=== PATIENT | female | born 1945 | race Caucasian/White ===

== ENCOUNTER → 2016-04-29 | Day surgery (SDC) | payer OTHER ==
[2016-04-16 11:36] VITALS: Ht 157.5 cm; Wt 65.0 kg
[~2016-04-29] VITALS: Ht 157.5 cm; Wt 65.0 kg
[~2016-04-29] MED LIST: ASPI81TA28 PO; ATROPINE SULFATE 0.1 MG/ML 5ML SYR IV PRN; BUPIVACAINE 0.5 % 5 MG/1 ML MPF 30ML VIAL ONE; CEFAZOLIN 1000MG/55 ML D5W IV SCH; CLTP PO; EZET10TA63 PO; EpHEDrine SULFATE INJ 50 MG/ML AMP IV PRN; EpINEphrine INJ 1MG/ML AMP 1 MG/ML AMP ONE; FENTANYL CITRATE INJ 50 MCG/1 ML 2 ML VIAL ONE; FIBER PO; GLUCTAB7 PO; HYDR-5688 PO; HYDROmorphone INJ 1 MG/ML SYR IV PRN; IBUP-1050 PO; KETOROLAC TROMETHAMINE 30 MG/ML VIAL ONE; LACTATED RINGER'S 1000ML 1,000 ML IV SCH; LIDOCAINE HCL 2% 2 ML VIAL (20MG/ML) ONE; LOSA1TAB PO; MAGN400T6 PO; MIDAZOLAM HCL 1 MG/ML 2ML VIAL ONE; MULT-513 PO; NIAC500T11 PO; OMEG10007 PO; ONDANSETRON INJ 2 MG/ML 2 ML VIAL IV PRN; OXYCODONE/ACETAMINOPHEN 5-325 TAB PO PRN; PROPOFOL IV EMULSION 10 MG/ML 20 ML VIAL IV ONE; RANI300T2 PO; REDCAP2 PO; ROPIVACAINE 0.5% 5 MG/ML 30 ML VIAL ONE; SODIUM CHLORIDE 0.9% 1000ML 1,000 ML IV SCH
--- NOTE | 2016-04-29 08:31 | History & Physical Bridge - [place] ---
H&P Re-Evaluation Bridge Note: I have examined the patient, reviewed the History & Physical and in the interval since the performance of the History & Physical I have noted the following changes of clinical significance: No changes noted
--- NOTE | 2016-04-29 09:07 | [facility] Post Operative Brief Note ---
Immediate Operative Summary Operative Date Apr 29, 2016. Pre-Operative Diagnosis Left Knee Current Tear Of Lateral Meniscus Post-Operative Diagnosis same Procedure(s) Performed Left Knee Arthroscopy, Partial Lateral Meniscectomy, Removal Spur, DJD LATERAL FEMORAL CONDYLE Surgeon Dr. Kala Sosa Tower Excavator Operator Surgeon(s) Víctor Ag PA-C Estimated Blood Loss 0 Findings ABOVE Specimens none Anesthesia LMA Complication(s) None Disposition Recovery Room / PACU
--- NOTE | 2016-04-29 09:20 | Discharge Instructions-SurgCtr ---
Discharge Instructions Visit Reason for Visit: Left Knee Current Tear Of Lateral Meniscus Discharge Discharge Diagnosis / Problem: SAME ABOVE Discharge Goals Goal(s): Decrease discomfort, Improve function Activity Recommendations Activity Limitations: as noted below Lifting Limitations: until after follow-up appointment Exercise/Sports Limitations: until after follow-up appointment Weightbearing Status: Left weightbearing (as tolerated) Anesthesia . Post Anesthesia Instructions: If you have had General Anesthesia or IV Sedation: * Do not drive today. * Resume driving when surgeon permits. * Do not make important decisions or sign legal documents today. * Call surgeon for: 1. Temperature elevations greater than 101 degrees F. 2. Uncontrollable pain. 3. Excessive bleeding. 4. Persistent nausea and vomiting. 5. Medication intolerance (nausea, vomiting or rash). * For nausea and vomiting use only clear liquids such as: tea, soda, bouillon until nausea subsides, then gradually increase diet as tolerated. * If you have any concerns or questions, call your surgeon's office. If physician is unavailable and it is an emergency, call 911 or go to the nearest emergency room. . Instructions / Follow-Up Instructions / Follow-Up MEDICATIONS: * Resume previous medications unless instructed otherwise by your surgeon. * Always take pain medication on a full stomach or with food to avoid upset stomach. * Do not drink alcohol or drive while taking narcotics. * Ibuprofen or Tylenol may be taken if narcotic not needed. SPECIAL CARE INSTRUCTIONS: __ None _X_ Keep extremity elevated and iced x 48 hours; apply ice 20-30 minutes 8-10 times/day. May remove at night. __ Crutches __ May discard when able __ Brace/Post-op shoe __ 24 hrs/day __ Remove at night _X_ Dressing __ Maintain until seen in office, may shower with plastic over site _X_ Remove dressings in 24-48 hours and then may shower _X_ Cover incisions with band-aids after showering __ Do not remove steri-strips Call physician if chills or temperature rises above 102 degrees or pain unrelieved by prescribed pain medications. Office [phone] Diet Recommendations Home Diet: resume previous diet Procedures Procedures Performed: Left Knee Arthroscopy, Partial Lateral Meniscectomy, Removal Spur, DJD LATERAL FEMORAL CONDYLE Pending Studies Studies pending at discharge: no Medical Emergencies . Who to Call and When: Medical Emergencies: If at any time you feel your situation is an emergency, please call 911 immediately. . Non-Emergent Contact Non-Emergency issues call your: Primary Care Provider . . "Provider Documentation" section prepared by Víctor Ag.
[2016-04-29] MEDS: FENTANYL CITRATE INJ 50 MCG/1 ML 2 ML VIAL IV PRN ×4 (09:29→09:53)
--- NOTE | 2016-04-29 09:53 | Anesthesia Progress Nt - [facility] ---
Anesthesia Post Op Note Date & Time Apr 29, 2016 at 09:52 Vital Signs Pain Intensity: 5.0 Vital Signs Past 12 Hours Date Time Temp Pulse Resp B/P Pulse Ox O2 Delivery O2 Flow Rate FiO2 04/29/16 09:15 36.0 75 12 158/87 100 Diffusion Mask 6 04/29/16 07:36 36.4 80 16 149/83 99 Room Air Notes Mental Status: alert / awake / arousable, participated in evaluation Pt Amnestic to Procedure: Yes Nausea / Vomiting: adequately controlled Pain: adequately controlled, improving with treatment Airway Patency, RR, SpO2: stable & adequate BP & HR: stable & adequate Hydration State: stable & adequate Anesthetic Complications: no major complications apparent
--- NOTE | 2016-04-29 09:59 | OPERATIVE REPORT ---
DATE OF OPERATION: 04/29/2016 PREOPERATIVE DIAGNOSIS: Lateral meniscus tear, left knee with degenerative joint disease. POSTOPERATIVE DIAGNOSES: 1. Complex tear of the anterior horn of the lateral meniscus, left knee. 2. Spur on the medial femoral condyle. 3. 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 4. Diffuse synovitis, left knee with partial tear of the anterior cruciate ligament at the footprint of the tibia of the intercondylar notch. PROCEDURE: 1. Left knee arthroscopy. 2. Partial lateral meniscectomy. 3. Removal of spur of the medial femoral condyle. 4. Diffuse synovectomy. SURGEON: Dr. Sosa. POCKET BUILDER: Víctor Ag PA-C. ANESTHESIOLOGIST: Guillermo . ANESTHESIA: LMA. DRAINS: None. COMPLICATIONS: None. CONDITION: The patient tolerated the procedure well and returned to the recovery room in apparent satisfactory condition. INDICATIONS FOR SURGERY: Lisseth is a 70-year-old female having all lateral compartment pain, left knee. Right knee is asymptomatic. Went over various treatment options and elected to go ahead and proceed with knee arthroscopy realizing that there are some limitations in what we can accomplish arthroscopically. We can address meniscal pathology but not degenerative arthritis. Procedure, expected outcomes and side effects, and risks were all explained in detail including the risk of surgery and possible not significant relief with the operation. PROCEDURE: The patient was taken to the OR at which time she was placed supine on the operating table, was put to sleep by the anesthesia department. Examination of left knee was performed. Ligamentous lambert was stable. She did have a mild effusion. We went ahead and prepped and draped in usual sterile fashion. Began arthroscopic examination in the anteromedial and anterolateral portals. Immediately, we got about 20 mL of clear fluid. There was some debris floating in it but it was relatively clear. We felt it was arthritic fluid. We then began arthroscopic examination in the knee joint. We found the spur on the flexion surface of the medial femoral condyle about the size of a peanut. It was interesting presentation as far as location. We went ahead and burred this down to a smooth area. We found a lot of synovitis in the intercondylar notch, this was shaved out. She had an anterior horn, medial and mid portion tear of the lateral meniscus, it was frayed and comminuted. We came in and trimmed it back to a stable rim. There were some articular changes of the lateral compartment, there was a grade 4 change of the trochlear groove within lateral femoral condyle. We did a diffuse synovectomy also to remove irritated tissue. The knee then was copiously irrigated. All cannulas were removed. Portals were closed with 4-0 nylon sutures. 30 mL of ropivacaine, 10 mg of Toradol, and 1 mL of epinephrine was placed in the knee joint. Placed a sterile dressing of Xeroform, 4 x 4, ABD, Sof-Rol, and Twan bandage and returned back to recovery room in apparent satisfactory condition. SURGICAL FINDINGS: Included: 1. Comminuted tear of the lateral meniscus. 2. Degenerative joint disease lateral femoral condyle grade 4. 3. Spur on the medial femoral condyle. 4. She had diffuse synovitis of the knee. 5. She had a partial tear of the footprint of the anterior cruciate ligament. I attest to the content of the Intraoperative Record and any orders documented therein. Any exceptions are noted below. TONY
[2016-04-29 10:21] VITALS: TEMP 36.8
[2016-04-29 10:50] VITALS: BP 149/82; PULSE 73; O2SAT 100
== END | disposition home or self-care (01) ==
LOC: X.SURG 07:20
PROVIDERS: ATTEND Orthopaedic Surgery
DX: M17.12 Unilateral primary osteoarthritis, left knee (principal); M25.562 Pain in left knee; Z98.49 Cataract extraction status, unspecified eye; E78.00 Pure hypercholesterolemia, unspecified; Z85.3 Personal history of malignant neoplasm of breast; M54.5 Low back pain; R12 Heartburn; M25.462 Effusion, left knee; Z79.82 Long term (current) use of aspirin; I10 Essential (primary) hypertension; I34.1 Nonrheumatic mitral (valve) prolapse; Z92.3 Personal history of irradiation

== ENCOUNTER → 2017-01-01 | Outpatient (CLI) | payer OTHER ==
[~2017-01-01] MED LIST changes: -ATROPINE SULFATE 0.1 MG/ML 5ML SYR IV PRN; -BUPIVACAINE 0.5 % 5 MG/1 ML MPF 30ML VIAL ONE; -CEFAZOLIN 1000MG/55 ML D5W IV SCH; -EpHEDrine SULFATE INJ 50 MG/ML AMP IV PRN; -EpINEphrine INJ 1MG/ML AMP 1 MG/ML AMP ONE; -FENTANYL CITRATE INJ 50 MCG/1 ML 2 ML VIAL ONE; -HYDR-5688 PO; -HYDROmorphone INJ 1 MG/ML SYR IV PRN; -KETOROLAC TROMETHAMINE 30 MG/ML VIAL ONE; -LACTATED RINGER'S 1000ML 1,000 ML IV SCH; -LIDOCAINE HCL 2% 2 ML VIAL (20MG/ML) ONE; -MIDAZOLAM HCL 1 MG/ML 2ML VIAL ONE; -ONDANSETRON INJ 2 MG/ML 2 ML VIAL IV PRN; -OXYCODONE/ACETAMINOPHEN 5-325 TAB PO PRN; -PROPOFOL IV EMULSION 10 MG/ML 20 ML VIAL IV ONE; -ROPIVACAINE 0.5% 5 MG/ML 30 ML VIAL ONE; -SODIUM CHLORIDE 0.9% 1000ML 1,000 ML IV SCH
--- NOTE | 2017-01-01 12:44 | MAMMOGRAPHY REPORT ---
BILATERAL DIGITAL SCREENING MAMMOGRAM TOMOSYNTHESIS WITH CAD: 01/01/2017 CLINICAL HISTORY: Asymptomatic. Personal history of breast cancer. TECHNIQUE: Breast tomosynthesis in addition to standard 2D mammography was performed. Current study was also evaluated with a Computer Aided Detection (CAD) system. COMPARISON: Comparison is made to exams dated: 12/25/2015 mammogram, 12/20/2014 mammogram, 06/26/2014 ma mmogram, 12/19/2013 mammogram, 12/16/2012 mammogram, and 12/16/2011 mammogram - [facility]. BREAST COMPOSITION: There are scattered areas of fibroglandular density in both breasts. FINDINGS: No suspicious masses, calcifications, or areas of architectural distortion are noted in ei ther breast. There has been no significant interval change compared to prior exams. There are stable postsurgical changes in the right upper outer quadrant from prior lumpectomy, including stable archi tectural distortion, density, surgical clips, and coarse benign dystrophic calcifications at the surg ical bed. IMPRESSION: ACR BI-RADS CATEGORY 2: BENIGN There is no mammographic evidence of malignancy. A 1 year screening mammogram is recommended. The pa tient will receive written notification of the results. Approximately 10% of breast cancers are not detected with mammography. A negative mammographic report should not delay biopsy if a clinically suggestive mass is present. Coby Emmanuel M.D. ah/:01/01/2017 12:07:24 Business Administrator: Corinne VALDES(Liliana)(M), [facility] letter sent: Normal 1/2 BI-RADS Code: ACR BI-RADS Category 2: Benign
== END | disposition home or self-care (01) ==
LOC: C.MAMM 09:52
PROVIDERS: ATTEND Obstetrics & Gynecology
DX: Z12.31 Encounter for screening mammogram for malignant neoplasm of breast (principal); Z85.3 Personal history of malignant neoplasm of breast

== ENCOUNTER → 2017-03-27 | Outpatient (CLI) | payer OTHER ==
[2017-03-27 09:32] LABS: BASO % 0.7 %; BASO ABS # 0.03 K/uL (0-0.2); COMPLETE YES; EOS % 4.5 %; LYMPH % 37.2 %; LYMPH ABS # 1.64 K/uL (1.2-3.4); MEAN CELL VOLUME 90.7 fL (80-100); MEAN CORPUSCULAR HEMOGLOBIN 30.2 pg (25-34); MEAN CORPUSCULAR HGB CONC 33.3 g/dl (32-36); MEAN PLATELET VOLUME 9.8 fL (7.4-10.4); MONO % 9.8 %; NEUT % 47.8 %; PLATELET COUNT 259 K/uL (130-400); RED BLOOD COUNT 3.97 M/uL (4.2-5.4); WHITE BLOOD COUNT 4.41 K/uL (4.8-10.8)
[2017-03-27 09:51] LABS: ALT/SGPT 42 U/L (12-78); AST/SGOT 32 U/L (15-37); BLOOD UREA NITROGEN 27 mg/dl (7-18); BUN/CREATININE RATIO 36.2 (10-20); CALCIUM 8.7 mg/dl (8.5-10.1); CARBON DIOXIDE 29 mmol/L (21-32); CHLORIDE 104 mmol/L (98-107); CREATININE 0.76 mg/dl (0.60-1.20); GLUCOSE 91 mg/dl (70-99); POTASSIUM 3.6 mmol/L (3.5-5.1); SODIUM 138 mmol/L (136-145)
[2017-03-27 09:54] LABS: ALB/GLOB RATIO 1.1 (0.9-2); ALKALINE PHOSPHATASE 75 U/L (45-117); CHOLESTEROL 226 mg/dl (0-200); CHOLESTEROL/HDL RATIO 2.2; HDL CHOLESTEROL 102 mg/dl; LDL CHOLESTEROL CALCULATED 110 mg/dl; TRIGLYCERIDES 71 mg/dl (0-150); VERY LOW DENSITY LIPOPROT CALC 14 mg/dl
== END | disposition home or self-care (01) ==
LOC: C.LAB1850 07:06
PROVIDERS: ATTEND Internal Medicine
DX: E78.00 Pure hypercholesterolemia, unspecified (principal); R73.01 Impaired fasting glucose; I10 Essential (primary) hypertension

== ENCOUNTER → 2017-05-11 | Outpatient (CLI) | payer OTHER | END | disposition home or self-care (01) | LOC: C.MAMM 14:28 | PROVIDERS: ATTEND Internal Medicine | DX: M85.88 Other specified disorders of bone density and structure, other site (principal) ==

== ENCOUNTER → 2017-05-19 | Outpatient (CLI) | payer OTHER | END | disposition home or self-care (01) | LOC: C.LABBFT 10:39 | PROVIDERS: ATTEND Internal Medicine | DX: M81.0 Age-related osteoporosis without current pathological fracture (principal) ==

== ENCOUNTER → 2017-11-12 | Outpatient (CLI) | payer OTHER ==
[~2017-11-12] MED LIST changes: +ACET-1256 PO; +ASPEC325 PO; -ASPI81TA28 PO; +CALC600T9 PO; +CETI10TA84 PO; -CLTP PO; +FLUT0.15; +FSMD/70 PO; -GLUCTAB7 PO; -IBUP-1050 PO; +MAGN1CAP2 PO; -MAGN400T6 PO; -MULT-513 PO; +NAPR1TAB9 PO; -OMEG10007 PO; +PSEU30TA3 PO; -REDCAP2 PO; +RXC5 PO; +TRAM-10 PO; +TURM1CAP4 PO; +ZOLP10TA PO
== END | disposition home or self-care (01) ==
LOC: C.LABBFT 10:23
PROVIDERS: ATTEND Nurse Practitioner
DX: R39.9 Unspecified symptoms and signs involving the genitourinary system (principal)

== ENCOUNTER 2021-10-18 07:56 | Observation (INO) ==
--- NOTE | 2021-09-23 21:17 | PAT Medication Instructions ---
Medication Instructions Date of Service September 23, 2021 Home Medications Medication Instructions Recorded alendronate 70 mg tablet See Rx Instructions .ROUTE 11/14/20 .COMPLEX #12 tablet cyclobenzaprine 5 mg tablet 5 mg PO TID PRN #30 tab 02/28/21 tramadol 50 mg tablet 50 mg PO Q6H PRN #60 tab 05/22/21 acetaminophen 650 mg tablet,extended release 650 mg PO Q12H PRN magnesium oxide 400 mg PO HS calcium carbonate 600 mg calcium (1,500 mg) tablet (Calcium) 600 mg PO HS cetirizine 10 mg capsule (Zyrtec) 10 mg PO HS aspirin 81 mg tablet,delayed release (Adult Low Dose Aspirin) 81 mg PO HS alendronate 70 mg tablet See Rx Instructions .ROUTE .COMPLE cyclobenzaprine 5 mg tablet 5 mg PO TID PRN tramadol 50 mg tablet 50 mg PO Q6H PRN biotin 1 mg tablet 1 mg PO HS cinnamon bark 500 mg capsule (Cinnamon) 500 mg PO HS cyanocobalamin (vitamin B-12) 1,000 mcg tablet (Vitamin B-12) 1,000 mcg PO QAM esomeprazole magnesium 40 mg capsule,delayed release (Nexium) 40 mg PO QAM ezetimibe 10 mg tablet (Zetia) 10 mg PO HS fluticasone propionate 50 mcg/actuation nasal spray,suspension (Flonase Allergy Relief) 2 spray INTNAS DAILY PRN losartan 100 mg tablet 100 mg PO QAM meloxicam 15 mg tablet 15 mg PO DAILY PRN turmeric 400 mg capsule 400 mg PO HS Continue as directed alendronate 70 mg tablet See Rx Instructions .ROUTE .COMPLE ASK your surgeon for instructions meloxicam 15 mg tablet 15 mg PO DAILY PRN STOP taking 2 weeks before surgery (or as soon as possible if surgery is within 2 weeks) cinnamon bark 500 mg capsule (Cinnamon) 500 mg PO HS turmeric 400 mg capsule 400 mg PO HS DO NOT take the morning of surgery cyclobenzaprine 5 mg tablet 5 mg PO TID PRN cyanocobalamin (vitamin B-12) 1,000 mcg tablet (Vitamin B-12) 1,000 mcg PO QAM losartan 100 mg tablet 100 mg PO QAM Take morning of surgery With a small sip of water, OTHERWISE NOTHING TO EAT OR DRINK AFTER MIDNIGHT: acetaminophen 650 mg tablet,extended release 650 mg PO Q12H PRN (okay to take up to 4 hours prior to surgery if needed) tramadol 50 mg tablet 50 mg PO Q6H PRN (okay to take up to 4 hours prior to surgery if needed) esomeprazole magnesium 40 mg capsule,delayed release (Nexium) 40 mg PO QAM fluticasone propionate 50 mcg/actuation nasal spray,suspension (Flonase Allergy Relief) 2 spray INTNAS DAILY PRN (if needed) Take evening before surgery acetaminophen 650 mg tablet,extended release 650 mg PO Q12H PRN (if needed) magnesium oxide 400 mg PO HS calcium carbonate 600 mg calcium (1,500 mg) tablet (Calcium) 600 mg PO HS cetirizine 10 mg capsule (Zyrtec) 10 mg PO HS aspirin 81 mg tablet,delayed release (Adult Low Dose Aspirin) 81 mg PO HS (continue as normal unless told otherwise by surgeon) cyclobenzaprine 5 mg tablet 5 mg PO TID PRN (if needed) tramadol 50 mg tablet 50 mg PO Q6H PRN (if needed) biotin 1 mg tablet 1 mg PO HS ezetimibe 10 mg tablet (Zetia) 10 mg PO HS fluticasone propionate 50 mcg/actuation nasal spray,suspension (Flonase Allergy Relief) 2 spray INTNAS DAILY PRN (if needed) Other Notes If you have any questions please call us at [phone] or [phone] or [phone] or [phone]
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
[~2021-10-18 07:56] MED LIST changes: -ACET-1256 PO; +ACETAMINOPHEN 500 MG TAB PO SCH; -ASPEC325 PO; +BUPIVACAINE 0.5 % 5 MG/1 ML PF 10ML VIAL ONE; -CALC600T9 PO; -CETI10TA84 PO; +EPINEPHrine INJ 1 MG/ML AMP ONE; -EZET10TA63 PO; +FAMOTIDINE 20 MG TAB PO SCH; -FIBER PO; -FLUT0.15; -FSMD/70 PO; +GABAPENTIN 300 MG CAP PO SCH; +Ketorolac (*for OR use only*) 30 MG, dexAMETHasone 4 MG, KETAMINE HCL (**OR use only) 1... INFIL SCH; -LOSA1TAB PO; +LR 500ML BOLUS, THEN 15ML/HR IV SCH; +LR 60ML/HR IV SCH; -MAGN1CAP2 PO; -NAPR1TAB9 PO; -NIAC500T11 PO; -PSEU30TA3 PO; -RANI300T2 PO; +ROPIVACAINE 0.5% 5 MG/ML 30 ML VIAL ONE; -RXC5 PO; -TRAM-10 PO; +TRANEXAMIC ACID 1,000 MG **IV Intra-op IV SCH; +TRANEXAMIC ACID 1,000 MG **IV Pre-op IV SCH; -TURM1CAP4 PO; -ZOLP10TA PO; +dexAMETHasone 4 MG TAB PO SCH
[2021-10-18] MEDS ORDERED: PROPOFOL IV EMULSION 10 MG/ML 20 ML VIAL IV ONE (08:40)
--- NOTE | 2021-10-18 09:18 | History & Physical Bridge Note ---
Date of Service October 18, 2021 History & Physical Bridge Note I have examined the patient, reviewed the History & Physical and in the interval since the performance of the History & Physical I have noted the following changes of clinical significance: no changes noted
[2021-10-18] MEDS ORDERED: PROMETHAZINE HCL 12.5 MG in SODIUM CHLORIDE 0.9% 50 ML IV PRN (09:30)
[2021-10-18] MEDS ORDERED: HYDROmorphone INJ 1 MG/ML SYRINGE IV PRN (09:30)
[2021-10-18] MEDS ORDERED: NALOXONE HCL 0.4 MG/1 ML VIAL/CARP IV PRN ×2 (09:30→13:55)
[2021-10-18] MEDS ORDERED: ATROPINE SULFATE 0.1 MG/ML 10ML SYR IV PRN (09:30)
[2021-10-18] MEDS ORDERED: ONDANSETRON INJ 2 MG/ML 2 ML VIAL IV PRN ×2 (09:30→13:55)
[2021-10-18] MEDS ORDERED: ePHEDrine sulfate 50 MG/ML AMP IV PRN (09:30)
[2021-10-18] MEDS ORDERED: FLUMAZENIL 0.1 MG/1 ML 10 ML VIAL IV PRN (09:30)
[2021-10-18] MEDS ORDERED: fentaNYL citrate 100 MCG/2 ML VIAL ONE ×2 (09:55→11:42)
[2021-10-18] MEDS ORDERED: MIDAZOLAM HCL 1 MG/ML 2ML VIAL ONE (09:55)
[2021-10-18] MEDS ORDERED: ORTHO JOINT ANESTHETIC ONE (10:07)
[2021-10-18] MEDS: ceFAZolin 1000MG 1,000 MG/7.5 ML SYR IV SCH ×2 (10:47→10:55)
[2021-10-18] MEDS ORDERED: ONDANSETRON INJ 2 MG/ML 2 ML VIAL ONE (11:29)
[2021-10-18] MEDS ORDERED: DEXAMETHASONE SOD INJ 4 MG/ML VIAL ONE (11:29)
--- NOTE | 2021-10-18 11:57 | Operative Report ---
PG Post Operative Report Pre & Post Diagnosis Operation Date: 10/18/21 10:30 Pre-Op Diagnosis: Osteoarthritis Right Knee Post-Op Diagnosis: Osteoarthrititis Right Knee I identified the patient and participated in the time-out.: Yes Procedure Operation Date: 10/18/21 10:30 Actual Procedures p Right Total Knee Arthroplasty - Víctor Garrett DO Surgeon Víctor Garrett DO Director Of Reimbursement Víctor Ag PAC Estimated Blood Loss 10 Findings Consistent with Post-Op Diagnosis Specimens Right femoral and tibial bone Complications none Disposition Disposition: Recovery Room Description of Procedure Implants used: I used a Kayy Persona total knee arthroplasty system with a size 7 narrow femur, E tibia, 31 oval patella, and a size 11 medial congruent polyethylene bearing. All components were cemented in place with Biomet cement. Lisseth arrived [facility] for the above procedure. She was seen in the preoperative holding area and the operative extremity was identified and signed. She was given a preoperative antibiotic, TXA, and an adductor nerve block. She was taken back to the operating room and laid on the table in supine position. She was given general anesthesia. The operative knee was then prepped and draped in sterile fashion. A timeout was done, and the patient and the operative extremity was properly identified. A midline incision was made directly over the patella. Dissection was taken down to the extensor mechanism. A subvastus arthrotomy was used. The medial retinaculum was released and the fat pad was mostly excised. The knee was flexed and the ACL, PCL, and meniscus were removed. A drill was sent down the center of the femoral canal followed by an intramedullary katie. Off that katie a distal femoral cutting block was placed. 9 mm was resected off the distal femur at 5 of valgus. A posterior referencing AP sizing guide was then placed on the distal femur. The femur measured to be a size 7. 2 drill holes were placed in 3 of external rotation. A 4-in-1 cutting block was then impacted into place. Anterior, posterior, and chamfer cuts were then made. The proximal tibia was then exposed. An external tibial alignment guide was placed. A tibial cut guide was then anchored in place and the proximal tibia was then resected. The posterior aspect of the knee was then opened up and any additional meniscus fragments and osteophytes were removed. The tibia measured to be a size E. The tibial plate was then placed in the appropriate rotation and the tibia was drilled and punched. Trial components were then placed. I used a size 11 medial congruent polyethylene insert. The knee was brought through a full range of motion and felt to be stable. The peg holes for the femoral component were then drilled. The patella was then everted and 9 mm was resected off the posterior aspect of the patella. The patella measured to be a size 31 oval. 3 peg holes were then drilled. A trial patella was placed. The knee was once again brought through a full range of motion and felt to be stable. Trial components were then removed. The surrounding soft tissues were injected with 100 cc of an orthopedic pain control cocktail. All components were then cemented into place with Biomet cement. The final polyethylene insert was then snapped into place. Once cement was dry the tourniquet was deflated. Hemostasis was obtained. A dilute betadyne lavage was then done for 3 minutes. The joint was then irrigated with normal saline solution. The subvastus arthrotomy was then closed with #1 Vicryl suture. The skin was closed with 2-0 Vicryl, 3-0V lock suture, and kassidy. A soft compressive dressing was placed. She was then transferred to a hospital bed and taken to the postanesthesia care unit in stable condition. She tolerated the procedure well. Víctor Ag PA-C, was present for the entire procedure. He was critical for patient positioning, prepping, draping, retraction exposure, wound closure and application of sterile dressing. I attest to the content of the Intraoperative Record and any orders documented therein. Any exceptions are noted below.
[2021-10-18] MEDS: fentaNYL citrate 100 MCG/2 ML VIAL IV PRN ×4 (12:27→13:00)
--- NOTE | 2021-10-18 12:51 | XRay Report ---
XR knee RT 1 or 2V routine CLINICAL HISTORY: Surgical Post Op COMPARISON: Right knee radiographs September 25, 2021. FINDINGS: Alignment of the total right knee arthroplasty is anatomic. There is no periprosthetic fra cture or unexpected radiopaque foreign body. Skin kassidy are present. IMPRESSION: Expected findings following total right knee arthroplasty. ACT 112: Negative or not required by law. Electronically signed by: Kolby Myrick M.D. 10/18/2021 12:50 PM
--- NOTE | 2021-10-18 13:03 | Anesthesiology Progress Note ---
Date of Service October 18, 2021 Anesthesia Post Procedure Vital Signs Vital Signs: Temp Pulse Pulse Resp BP Pulse Ox 10/18/21 12:50 36.4 C L 90 16 128/58 L 100 10/18/21 12:40 87 15 131/62 98 10/18/21 12:30 93 H 12 136/65 95 10/18/21 12:21 36.5 C 101 H 15 151/82 H 95 10/18/21 08:20 36.5 C 78 20 138/71 97 Pain Intensity Right Knee: Pain Intensity: 3 Transfer of Care Handoff Completed per policy Notes Mental Status: alert / awake / arousable Patient Amnestic to Procedure: Yes Nausea / Vomiting: adequately controlled Pain: adequately controlled Airway Patency, RR, SpO2: stable & adequate BP & HR: stable & adequate Hydration State: stable & adequate Anesthetic Complications: no major complications apparent
[2021-10-18] MEDS ORDERED: HYDROmorphone INJ 0.5 MG/0.5 ML SYR IV PRN (13:55)
[2021-10-18] MEDS ORDERED: FLUTICASONE PROPIONATE NA SPR 16 GM BTL PRN (13:55)
[2021-10-18] MEDS ORDERED: MAGNESIUM HYDROXIDE SUSP 30 ML UDC PO PRN (13:55)
[2021-10-18] MEDS ORDERED: CYCLOBENZAPRINE HCL 5 MG TAB PO PRN (13:55)
[2021-10-18] MEDS ORDERED: oxyCODONE HCL IR 5 MG TAB (IMMEDIATE RELEASE) PO PRN (13:55)
[2021-10-18] MEDS ORDERED: bisacodyL 10 MG SUPP PR PRN (13:55)
[2021-10-18] MEDS ORDERED: METOCLOPRAMIDE HCL INJ 5 MG/ML 2 ML VIAL IV PRN (13:55)
[2021-10-18] MEDS: SODIUM CHLORIDE 0.9% 1000ML 1,000 ML IV SCH (14:12)
[2021-10-18] MEDS: KETOROLAC TROMETHAMINE 15 MG/ML VIAL IV SCH ×2 (15:12→21:26)
[2021-10-18] MEDS: ACETAMINOPHEN 500 MG TAB PO SCH ×2 (15:13→21:24)
[2021-10-18] MEDS: ceFAZolin 2000MG 2,000 MG/15 ML SYR IV SCH (17:55)
[2021-10-18] MEDS: traMADol HCL 50 MG TABLET PO PRN (18:18)
[2021-10-18] MEDS ORDERED: CETIRIZINE HCL 10 MG TABLET PO SCH (21:00)
[2021-10-18] MEDS ORDERED: MAGNESIUM OXIDE 400 MG TAB PO SCH (21:00)
[2021-10-18] MEDS ORDERED: EZETIMIBE 10 MG TABLET PO SCH (21:00)
[2021-10-18] MEDS ORDERED: SENNA 8.6 MG TAB PO SCH (21:00)
[2021-10-18] MEDS: ASPIRIN 81 MG ECTAB PO SCH (21:21)
[2021-10-18] MEDS: DOCUSATE SODIUM 100 MG CAP PO SCH (21:22)
[2021-10-19] MEDS: SODIUM CHLORIDE 0.9% 1000ML 1,000 ML IV SCH (00:49)
[2021-10-19] MEDS: KETOROLAC TROMETHAMINE 15 MG/ML VIAL IV SCH ×3 (00:55→12:23)
[2021-10-19] MEDS: ceFAZolin 2000MG 2,000 MG/15 ML SYR IV SCH (02:14)
[2021-10-19] MEDS: ACETAMINOPHEN 500 MG TAB PO SCH (06:03)
--- NOTE | 2021-10-19 07:22 | Orthopedic Progress Note ---
Date of Service October 19, 2021 Assessment & Plan (1) Status post right knee replacement: Overall she is doing fairly well. She is not having too much pain in the right knee. She will be seen by physical therapy today for ambulation and range of motion exercises. She is on aspirin for DVT prophylaxis. [facility] today if a bed becomes available. She will follow-up with orthopedics in 2 weeks. Anil Montanez was seen and examined at bedside this morning. Overall she is doing fairly well. She is having too much pain in the right knee. She has been up and ambulating to the bathroom. She has no complaints. Review of Systems All systems reviewed & are unremarkable except as noted in HPI & below. Physical Exam Is out in fullOn physical examination of the right knee, the dressing is clean and dry. Extension. She has active dorsiflexion and plantarflexion of her right ankle. Results & Data Results & Data Laboratory Results . Diagnostic Findings Postoperative x-rays of the right knee show the prosthesis to be in anatomic alignment without any evidence of fracture, desiccation, or loosening. PG Care Time/CCT Total # of Minutes Spent Total Time Spent with Patient: Total time spent is greater than 50% in coordination of care (as documented) at patient's floor/unit and/or counseling patient: Coding Level of Care Code 97366 Post Operative Follow-Up Diagnoses Status post right knee replacement Z96.651
[2021-10-19] MEDS ORDERED: dexAMETHasone 4 MG TAB PO SCH (08:00)
[2021-10-19] MEDS: ASPIRIN 81 MG ECTAB PO SCH (08:44)
[2021-10-19] MEDS: DOCUSATE SODIUM 100 MG CAP PO SCH (08:44)
[2021-10-19] MEDS: traMADol HCL 50 MG TABLET PO PRN (08:44)
[2021-10-19] MEDS ORDERED: LOSARTAN POTASSIUM 50 MG TAB PO SCH (09:00)
[2021-10-19] MEDS ORDERED: PANTOprazole 40 MG TAB PO SCH (09:00)
[2021-10-19] MEDS ORDERED: MULTIVITAMIN TAB PO SCH (09:00)
--- NOTE | 2021-10-20 07:58 | Discharge Summary ---
Date of Service October 20, 2021 Principal Diagnosis Same as "Discharge Diagnosis" noted below under Discharge Instructions. Discharge Exam Is out in fullOn physical examination of the right knee, the dressing is clean and dry. Extension. She has active dorsiflexion and plantarflexion of her right ankle. Discharge Data Procedures Performed Operation Date: 10/18/21 10:30 Actual Procedures p Right Total Knee Arthroplasty - Víctor Garrett DO Ordered Studies 10/18/21 05:00 US - OR guided needle placemen Routine Hospital Course (1) Status post right knee replacement: On October 18, 2021 Lisseth arrived at [facility] and underwent a right knee replaced without complication. Postoperatively she was started on aspirin for DVT prophylaxis and transferred to the general orthopedic floors. Her hospital course was uneventful. On postop day #1, her vital signs were stable and her pain was well controlled. She was able to participate well with physical therapy doing ambulation and range of motion exercises. She was then discharged home. She will follow-up with orthopedics in 2 weeks. PG Care Time/CCT Total # of Minutes Spent Total Time Spent with Patient: Total time spent is greater than 50% in coordination of care (as documented) at patient's floor/unit and/or counseling patient: Discharge Plan Discharge Items Patient Disposition: Transfer Inpatient Rehab Fac Reason For Visit: Degeneartive Joint Disease Right Knee Discharge Diagnosis: Right knee replacement Activity: Per Instructions section Non-emergency contact: Surgeon Call non-emergency contact if: your wound has increased redness and your wound has increased drainage Follow-up/Referrals: Trisha Saucedo DO [Primary Care Provider] - Diet: Regular Addtl Attending Provider Instructions: Activity and Therapy Recommendations: * If you are using [facility] then therapy will be provided at your home until they feel you have accomplished all of your goals. * If you are using [facility] then Physical Therapy will be provided until they feel you are ready to start Outpatient Physical Therapy. * If you are not using home therapy then Outpatient Physical Therapy should start about 3-5 days from your day of surgery. Therapy will last about 6-10 weeks * It is important not to put a pillow under your knee when you are relaxing or sleeping. It is just as important to make sure you are getting your knee perfectly straight as it is to regain your knee bend. * You were shown a series of exercises in the hospital. Do these exercises three times each day including the exercises you were shown in physical therapy. * Get up and walk several times each day. For the first four weeks, try not to stand or walk for more than one hour at a time. If you do stand or walk for more than one hour, you will not hurt anything, but your leg will likely swell. * As you feel comfortable, you may change from the walker or crutches to a cane and then to independent walking. Medications: * Narcotic You will likely be sent home from the hospital with a prescription for the narcotic pain medication that worked best throughout your stay. * Aspirin Most patients will be required to take Aspirin 81mg twice a day for 6 weeks after surgery. This is obtained [id number] and a prescription is not necessary. * Other medications may be prescribed for specific circumstances. If you have any questions, please call the office at . * Resume previous home medications unless otherwise instructed TEDs/Elastic Stockings: The white elastic stockings help limit swelling and prevent blood clots from forming in your legs.~ The more you wear them, the more they work. Wear them for six weeks. Dressing Care: The dressing can be changed after physical therapy on postop day #1. Daily dry dressing changes for a few days, especially if the incision is still draining some. If the incision is not draining then you may leave the kassidy open to air. If there is a little bit of drainage or if the kassidy are getting stuck on your clothing then cover the incision with a dry dressing. The kassidy will be removed at your 2 week follow-up appointment. Showering: You may shower 5 days from the day of surgery as long as the incision is no longer draining. You may shower with the kassidy exposed. Let soapy water run over the kassidy and pat them dry. Do not scrub or soak the incision. Things To Watch For: * Drainage from the incision site that occurs more than one week after your surgery. * Increased redness at the incision site. * Fever above 102 degrees Fahrenheit. * Unusual chest pain or shortness of breath. * Call [facility] at with any of the above problems Follow-Up Visit: Follow-up with Dr. Garrett's PA (Víctor Ag) 2-3 weeks after your day of surgery. He will remove your kassidy and answer any questions. If you have any additional questions or concerns, Dr Garrett is usually in the office at the same time and will be available An appointment was probably scheduled when you signed-up for surgery in the office. If you have any questions call Office Instructions: More detailed instructions as well as Frequently Asked Questions were provided in a folder by our office when you signed-up for surgery. Please review these instructions when you get home. If you have any further questions or concerns, please feel free to call the office at [phone] Pending Studies at Discharge: No Stand-Alone Forms: My [employer], Smoking Cessation Skilled Items Patient informed of condition?: Yes DNR: No Discharge Level of Care: Acute rehab Communicable Disease: No Discharge Prognosis: Improving Lines: None Urinary Catheter: No Medications and DC Order Prescriptions: Continued magnesium oxide 400 mg magnesium tablet 400 mg PO HS RF: 0 acetaminophen 650 mg tablet extended release 650 mg PO Q12H PRN (Reason: Pain) RF: 0 Zyrtec 10 mg capsule 10 mg PO HS RF: 0 alendronate 70 mg tablet See Rx Instructions .ROUTE .COMPLEX Qty: 12 RF: 3 cyclobenzaprine 5 mg tablet 5 mg PO TID PRN (Reason: muscle spasm) Qty: 30 RF: 1 calcium carbonate [Calcium 600] 600 mg calcium (1,500 mg) tablet 600 mg PO HS RF: 0 losartan 100 mg Tablet 100 mg PO QAM RF: 0 meloxicam 15 mg tablet 15 mg PO DAILY PRN (Reason: Pain) RF: 0 esomeprazole magnesium [Nexium] 40 mg capsule,delayed release(DR/EC) 40 mg PO QAM RF: 0 fluticasone propionate [Flonase Allergy Relief] 50 mcg/actuation spray,suspension 2 spray INTNAS DAILY PRN (Reason: Nasal Congestion) RF: 0 ezetimibe [Zetia] 10 mg tablet 10 mg PO HS RF: 0 cinnamon bark [Cinnamon] 500 mg Capsule 500 mg PO HS RF: 0 turmeric 400 mg Capsule 400 mg PO HS RF: 0 cyanocobalamin (vitamin B-12) [Vitamin B-12] 1,000 mcg Tablet 1,000 mcg PO QAM RF: 0 biotin 1 mg Tablet 1 mg PO HS RF: 0 tramadol 50 mg tablet 50 mg PO Q6H PRN (Reason: pain) Qty: 60 RF: 0 Changed aspirin [Adult Low Dose Aspirin] 81 mg tablet,delayed release (DR/EC) 81 mg PO BID 42 Days Qty: 0 RF: 0 Discharge Orders: Discharge Order (Routine); Ordered 10/19/21 Ordered By: Víctor Garrett Admission Data Admit Date/Time: 10/18/21 12:22 Attending Provider: Víctor Garrett Admit Provider: Víctor Garrett Primary Care Provider: Trisha Saucedo Other Providers: [facility] Other Interventions: Discharge Summary Assessment (RN) Last Done: 10/19/21 11:03
[2021-10-20] MEDS ORDERED: ALENDRONATE SODIUM 70 MG TAB PO SCH (09:00)
== END 2021-10-19 13:30 ==
LOC: ASU 07:56 → 3E 07:56

== ENCOUNTER 2024-04-25 05:14 | Observation (INO) ==
--- NOTE | 2024-02-29 16:04 | PAT Medication Instructions ---
Medication Instructions Date of Service February 29, 2024 Home Medications Medication Instructions Recorded cyclobenzaprine 5 mg tablet 5 mg PO TID PRN muscle spasm #30 02/28/21 tabs tramadol 50 mg tablet 50 mg PO Q8H PRN pain #30 tabs 02/23/24 walker #1 ea 02/23/24 acetaminophen 650 mg tablet,extended release 650 mg PO Q12H PRN magnesium oxide 400 mg PO HS calcium carbonate (Calcium 600) 600 mg PO HS cetirizine 10 mg capsule (Zyrtec) 10 mg PO HS cyclobenzaprine 5 mg tablet 5 mg PO TID PRN biotin 1 mg tablet 1 mg PO HS esomeprazole magnesium 40 mg capsule,delayed release (Nexium) 40 mg PO QAM fluticasone propionate 50 mcg/actuation nasal spray,suspension (Flonase Allergy Relief) 2 spray intranasal DAILY PRN losartan 100 mg tablet 100 mg PO QAM rosuvastatin 5 mg tablet 5 mg PO QAM zolpidem 10 mg tablet 10 mg PO HS PRN tramadol 50 mg tablet 50 mg PO Q8H PRN alendronate 70 mg tablet 70 mg PO WK cinnamon bark 500 mg capsule (Cinnamon) 500 mg PO DAILY ferrous sulfate 325 mg (65 mg iron) tablet (FeroSul) 325 mg PO 3XWK gabapentin 300 mg capsule 300 mg PO UD inulin 2.5 gram chewable tablet 2.5 g PO DAILY meloxicam 15 mg tablet 15 mg PO QAM turmeric 400 mg capsule 400 mg PO DAILY Continue as directed fluticasone propionate 50 mcg/actuation nasal spray,suspension (Flonase Allergy Relief) 2 spray intranasal DAILY PRN(if needed) gabapentin 300 mg capsule 300 mg PO UD ASK your surgeon for instructions meloxicam 15 mg tablet 15 mg PO QAM STOP taking 2 weeks before surgery (or as soon as possible if surgery is within 2 weeks) biotin 1 mg tablet 1 mg PO HS cinnamon bark 500 mg capsule (Cinnamon) 500 mg PO DAILY turmeric 400 mg capsule 400 mg PO DAILY inulin 2.5 gram chewable tablet 2.5 g PO DAILY DO NOT take the morning of surgery losartan 100 mg tablet 100 mg PO QAM alendronate 70 mg tablet 70 mg PO WK ferrous sulfate 325 mg (65 mg iron) tablet (FeroSul) 325 mg PO 3XWK Take morning of surgery With a small sip of water, OTHERWISE NOTHING TO EAT OR DRINK AFTER MIDNIGHT: acetaminophen 650 mg tablet,extended release 650 mg PO Q12H PRN(if needed) cyclobenzaprine 5 mg tablet 5 mg PO TID PRN(if needed) esomeprazole magnesium 40 mg capsule,delayed release (Nexium) 40 mg PO QAM rosuvastatin 5 mg tablet 5 mg PO QAM tramadol 50 mg tablet 50 mg PO Q8H PRN(if needed) Take evening before surgery acetaminophen 650 mg tablet,extended release 650 mg PO Q12H PRN(if needed) cyclobenzaprine 5 mg tablet 5 mg PO TID PRN(if needed) magnesium oxide 400 mg PO HS calcium carbonate (Calcium 600) 600 mg PO HS cetirizine 10 mg capsule (Zyrtec) 10 mg PO HS zolpidem 10 mg tablet 10 mg PO HS PRN(if needed) tramadol 50 mg tablet 50 mg PO Q8H PRN(if needed) Other Notes If you have any questions please call us at [phone] or [phone] or [phone] or [phone]
--- NOTE | 2024-03-08 12:04 | Anesthesiology Consultation ---
Date of Service March 08, 2024 Assessment & Plan (1) Encounter for pre-operative examination: - Infectious disease screening: Per assessment on 03/08/24- No known recent infectious disease contacts or current infectious disease symptoms. - Outpatient joint assessment: Pt currently scheduled for inpatient pathway. If surgeon requests review for outpatient joint pathway, patient is not recommended candidate for outpatient joint program from anesthesia standpoint based on available information. - Previous anesthesia hx: * Left TKA (10/2017): SAB at L4-5 (x2 attempts) + PNB at [facility] * Right TKA (10/18/21): Multiple SAB attempts- unable 2/2 to bone and scoliosis > LMA iGel attempted, not well seating with pt anatomy > unique #4 + regional at [facility]. Chart Review Chart Review: Acceptable Risk for Surgery and Patient seen in Pre Admission Testing Teaching & Discussion Pre-Anesthesia Teaching/Discussion Notes: Instructed NPO after midnight before surgery,except medications with 15 cc of water. Medication instructions provided according to the PAT guidelines. History Surgery Operation Date: 04/25/24 12:15 Proposed Procedures p Left Total Hip Arthroplasty Anterior - Víctor Garrett, Height/Weight Height: 5 ft 1 in Weight: 65.7 kg Allergies Allergy/AdvReac Type Severity Reaction Status Date / Time [id number] Reductase AdvReac Intermediate Elevated Verified 02/29/24 14:28 Inhibitor liver [Xwonmej-Sgn-Dyz Reductase enzymes Inhibitor] Medications Home Medications Medication Instructions Recorded Confirmed Last Taken acetaminophen 650 mg 650 mg PO Q12H PRN Pain 06/09/18 02/29/24 10/18/21 06:00 tablet,extended release magnesium oxide 400 mg PO HS 06/09/18 02/29/24 10/17/21 21:00 calcium carbonate (Calcium 600) 600 mg PO HS 01/24/19 02/29/24 10/17/21 21:00 cetirizine 10 mg capsule (Zyrtec) 10 mg PO HS 01/24/19 02/29/24 10/17/21 21:00 cyclobenzaprine 5 mg tablet 5 mg PO TID PRN muscle spasm #30 02/28/21 02/29/24 Unknown tabs biotin 1 mg tablet 1 mg PO HS 09/19/21 02/29/24 10/17/21 21:00 esomeprazole magnesium 40 mg 40 mg PO QAM 09/19/21 02/29/24 10/18/21 06:00 capsule,delayed release (Nexium) fluticasone propionate 50 2 spray intranasal DAILY PRN Nasal 09/19/21 02/29/24 Unknown mcg/actuation nasal Congestion spray,suspension (Flonase Allergy Relief) losartan 100 mg tablet 100 mg PO QAM 09/19/21 02/29/24 10/17/21 21:00 rosuvastatin 5 mg tablet 5 mg PO QAM 09/09/23 02/29/24 Unknown zolpidem 10 mg tablet 10 mg PO HS PRN Sleep 09/09/23 02/29/24 Unknown tramadol 50 mg tablet 50 mg PO Q8H PRN pain #30 tabs 02/23/24 02/29/24 Unknown walker #1 ea 02/23/24 Unknown alendronate 70 mg tablet 70 mg PO WK 02/29/24 02/29/24 Unknown cinnamon bark 500 mg capsule 500 mg PO DAILY 02/29/24 02/29/24 Unknown (Cinnamon) ferrous sulfate 325 mg (65 mg 325 mg PO 3XWK 02/29/24 02/29/24 Unknown iron) tablet (FeroSul) gabapentin 300 mg capsule 300 mg PO UD 02/29/24 02/29/24 Unknown inulin 2.5 gram chewable tablet 2.5 g PO DAILY 02/29/24 02/29/24 Unknown meloxicam 15 mg tablet 15 mg PO QAM pain 02/29/24 02/29/24 Unknown turmeric 400 mg capsule 400 mg PO DAILY 02/29/24 02/29/24 Unknown Past Medical History Medical History Cervical radiculopathy Disc degeneration, lumbar GERD (gastroesophageal reflux disease) History of osteoarthritis History of right breast cancer Right breast (dx 2008) s/p surgery (lumpectomy)/radiation Hyperglycemia Last HgbA1C 04/2021: 6.1% Hypertension Per records Insomnia Mitral valve prolapse Per patient, remotely told hx MVP, No recent ECHO No murmur noted at 03/08/24 PAT appt Osteoporosis Right carotid bruit Noted per remote 2012 [facility] records > carotid ultrasound done 05/04/2012 noting no evidence of hemodynamically significant stenosis B/L ICAs No carotid bruit noted on PAT exam 03/08/23 Scoliosis "Mild" Thyroid nodule s/p "benign" biopsy Exercise / Class Metabolic Activity II 4-5 Yardwork/Stairs/Walk up hill (one FS: No CP, no SOB) Past Family History Family History Mother Leukemia Hypertension Father Coronary heart disease Myocardial infarction Other Breast cancer Cancer No family history of adverse response to anesthesia Denies family history of Sudden Ovarian cancer Prostate cancer Diabetes Lung cancer Colorectal cancer Past Surgical History Surgical History H/O bilateral cataract extraction History of arthroscopy of both knees History of colonoscopy (05/10/13) Sigmoid diverticulosis, recheck in 10 years History of cone biopsy of cervix History of esophagogastroduodenoscopy (EGD) History of left knee replacement (10/30/17) SAB at L4-5 (x2 attempts) + PNB at [facility]. No issues per post-op anesthesia progress note. History of lumpectomy of right breast (~2008) History of right breast biopsy (~2008) malignant History of wisdom tooth extraction Status post right knee replacement Right TKA (10/18/21): Mutliple SAB attempts- unable 2/2 to bone and scoliosis > LMA iGel attempted, not well seating with pt anatomy > unique #4 + regional at [facility] Past Anesthesia History No Hx of Anesthesia Complications and No Family Hx of Anesthesia Complications History of PONV No Hx of PONV and Hx of Motion Sickness Social History Smoking Status: Former smoker Do You Dip or Chew Tobacco: No Smoking End Date: Quit 20-25 years ago Hx Alcohol Use: Yes Alcohol type: beer and wine alcohol intake frequency: a few times a month Hx Substance Use: No substance use type: does not use Review of Systems Patient denies chest pain, shortness of breath, dyspnea on exertion, fever, chills, cough, wheezing, palpitations. Physical Exam Vital Signs BP 133/81 P 80 TEMP 98.2 SP02 96%RA RESP 16 Physical Full cervical extension range of motion. Full TMJ range of motion. TMD > 3.5 finger breaths Mallampati Score I Dentition: missing molar, + crowns Lungs: clear throughout to auscultation Cardiac: regular rate and rhythm, no murmurs noted Spine: normal Carotid arteries: negative bruit Extremities: no LE edema Lab Results Anesthesia Preop Results Results Anesthesia Widget: WBC 5.56 K/ul (4.8-10.8) 03/08/24 Hgb 11.5 g/dl (12.0-16.0) L 03/08/24 Hct 34.9 % (37.0-47.0) L 03/08/24 Plt 268 K/uL (130-400) 03/08/24 Na 138 mmol/L (136-145) 03/08/24 K 4.4 mmol/L (3.5-5.1) 03/08/24 Cl 103 mmol/L (98-107) 03/08/24 CO2 29 mmol/L (21-32) 03/08/24 BUN 18 mg/dl (6-23) 03/08/24 Creat 1.02 mg/dl (0.6-1.2) 03/08/24 Glucose Level 97 mg/dl (70-99(Fasting)) 03/08/24 PT 10.5 Seconds (9.0-12.0) 03/08/24 PTT 23 Seconds (21-31) 03/08/24 INR 1.0 (0.9-1.1) 03/08/24 Blood Type A Negative 03/08/24 Antibody Screen NEGATIVE 03/08/24 Testing Electrocardiogram Date: 03/08/24 NSR at 79bpm. "Normal ECG" Chest X-Ray Date: 03/08/24 IMPRESSION: No evidence of acute cardiopulmonary disease, communicable disease or tuberculosis. No interval change.
--- NOTE | 2024-04-21 07:48 | History & Physical Report ---
Date of Service April 21, 2024 Assessment & Plan (1) Osteoarthritis of left hip: We will proceed with a left anterior total of arthroplasty. Postoperatively she will be started on aspirin for DVT prophylaxis and kept overnight in the hospital for postop medical management. She plans to go to [facility] upon discharge. History of Present Illness Chief Complaint: Osteoarthritis of left hip. Primary Care Provider: Cristy Corona DO Lisseth is a pleasant 78-year-old female who has been dealing with chronic increasing right hip and groin pain. X-rays from November did not look too bad. She was treated with a left hip intraarticular injection. Unfortunately, her symptoms worsened. She was then sent for an MRI of her hip. MRI confirms advanced osteoarthritis. After failing conservative treatment, she has elected proceed with a left anterior total of arthroplasty. Allergies Allergy/AdvReac Type Severity Reaction Status Date / Time [id number]-QJK-YeB Reductase AdvReac Intermediate Elevated Verified 02/29/24 14:28 Inhibitor liver [Iwycaus-Xvi-Yyf Reductase enzymes Inhibitor] Home Medications Medication Instructions Recorded Confirmed Type acetaminophen 650 mg 650 mg PO Q12H PRN Pain 06/09/18 02/29/24 History tablet,extended release magnesium oxide 400 mg PO HS 06/09/18 02/29/24 History calcium carbonate (Calcium 600) 600 mg PO HS 01/24/19 02/29/24 History cetirizine 10 mg capsule (Zyrtec) 10 mg PO HS 01/24/19 02/29/24 History cyclobenzaprine 5 mg tablet 5 mg PO TID PRN muscle spasm #30 02/28/21 02/29/24 Rx tabs biotin 1 mg tablet 1 mg PO HS 09/19/21 02/29/24 History esomeprazole magnesium 40 mg 40 mg PO QAM 09/19/21 02/29/24 History capsule,delayed release (Nexium) fluticasone propionate 50 2 spray intranasal DAILY PRN Nasal 09/19/21 02/29/24 History mcg/actuation nasal Congestion spray,suspension (Flonase Allergy Relief) losartan 100 mg tablet 100 mg PO QAM 09/19/21 02/29/24 History rosuvastatin 5 mg tablet 5 mg PO QAM 09/09/23 02/29/24 History zolpidem 10 mg tablet 10 mg PO HS PRN Sleep 09/09/23 02/29/24 History tramadol 50 mg tablet 50 mg PO Q8H PRN pain #30 tabs 02/23/24 02/29/24 Rx walker #1 ea 02/23/24 Rx alendronate 70 mg tablet 70 mg PO WK 02/29/24 02/29/24 History cinnamon bark 500 mg capsule 500 mg PO DAILY 02/29/24 02/29/24 History (Cinnamon) ferrous sulfate 325 mg (65 mg 325 mg PO 3XWK 02/29/24 02/29/24 History iron) tablet (FeroSul) gabapentin 300 mg capsule 300 mg PO UD 02/29/24 02/29/24 History inulin 2.5 gram chewable tablet 2.5 g PO DAILY 02/29/24 02/29/24 History meloxicam 15 mg tablet 15 mg PO QAM pain 02/29/24 02/29/24 History turmeric 400 mg capsule 400 mg PO DAILY 02/29/24 02/29/24 History Past Med/Surg History Problem List Trigger finger, right ring finger Encounter for pre-operative examination Trochanteric bursitis, right hip Carpal tunnel syndrome of right wrist Greater trochanteric bursitis of left hip Arthralgia (Chronic) Trochanteric bursitis of left hip (Chronic) Lumbar radiculopathy (Chronic) Medical History History of osteoarthritis Insomnia Disc degeneration, lumbar Right carotid bruit Noted per remote 2012 [facility] records > carotid ultrasound done 05/04/2012 noting no evidence of hemodynamically significant stenosis B/L ICAs No carotid bruit noted on PAT exam 03/08/23 Hypertension Per records GERD (gastroesophageal reflux disease) Thyroid nodule s/p "benign" biopsy Mitral valve prolapse Per patient, remotely told hx MVP, No recent ECHO No murmur noted at 03/08/24 PAT appt Osteoporosis Cervical radiculopathy History of right breast cancer Right breast (dx 2008) s/p surgery (lumpectomy)/radiation Hyperglycemia Last HgbA1C 04/2021: 6.1% Scoliosis "Mild" Surgical History Status post right knee replacement Right TKA (10/18/21): Mutliple SAB attempts- unable 2/2 to bone and scoliosis > LMA iGel attempted, not well seating with pt anatomy > unique #4 + regional at [facility] History of arthroscopy of both knees History of cone biopsy of cervix History of esophagogastroduodenoscopy (EGD) History of right breast biopsy (~2008) malignant History of wisdom tooth extraction History of colonoscopy (05/10/13) Sigmoid diverticulosis, recheck in 10 years History of lumpectomy of right breast (~2008) H/O bilateral cataract extraction History of left knee replacement (10/30/17) SAB at L4-5 (x2 attempts) + PNB at [facility]. No issues per post-op anesthesia progress note. Family History Mother Leukemia Hypertension Father Coronary heart disease Myocardial infarction Other Breast cancer Cancer No family history of adverse response to anesthesia Denies family history of Sudden Ovarian cancer Prostate cancer Diabetes Lung cancer Colorectal cancer Social History Smoking Status: Former smoker Tobacco Type: Cigarettes Smoking End Date: Quit 20-25 years ago; Second Hand Exposure: No; Do You Dip or Chew Tobacco: No; Tobacco Cessation Education Requested by Patient: No Hx Alcohol Use: Yes Alcohol type: beer and wine Hx Substance Use: No Preferred Language: Tajik Communication Ability: Effective Visual Impairment: Limited Hearing Ability: Use of Hearing Aid Compressed Air Pile Driver Operator Required: No Beliefs That Will Affect Care: None marital status: Single Current Living Situation: Alone current occupational status: retired Other Information That Helps Us Care for You: No Feels Safe at Home: Yes Safety Concerns: Feels Safe At This Time Childhood Exposure to Second-Hand Smoke: No Diet: regular caffeine: Yes Dental Care, Regularly: Yes Physical Activity Frequency: 3-4 Times per Week Seatbelt Use: always Sunscreen Use: Yes Assistive Devices: Cane, Glasses and Hearing Aid - Bilateral Review of Systems All systems reviewed & are unremarkable except as noted in HPI & below. Physical Exam On physical exam of the left hip, she has decreased range of motion. She has pain with forced internal/external rotation. All of her pain is located in the groin.. Constitutional WD/WN, vitals as above Eyes PERRL, conjunctivae normal, anicteric sclerae ENMT external ear and nose normal, oropharynx normal Neck trachea midline, no thyromegaly Respiratory normal respiratory effort Cardiovascular RRR, no murmur, no edema Gastrointestinal (Abdomen) normal bowel sounds, soft, nontender, no hepatosplenomegaly Psychiatric A+Ox3, euthymic affect Results & Data Results & Data Laboratory Results . Diagnostic Findings X-rays of the left hip show advanced osteoarthritis with joint space narrowing, osteophyte formation, and [id number] tubulation. PG Care Time/CCT Total # of Minutes Spent Total Time Spent with Patient: Total time spent is greater than 50% in coordination of care (as documented) at patient's floor/unit and/or counseling patient: Coding Level of Care Code None Diagnoses Osteoarthritis of left hip M16.12
--- OUTSIDE RECORDS SUMMARY | 2024-04-25 05:19 | External Medical Summary | Summary of Care ---
Author Name Unknown Organization [facility] Address [address] [place] [address] Phone [phone] Care Team Providers Care Certified Pharmacy Technician Name Role Phone Cristy Corona Primary Care Provider [phone] Reason for Visit * Reason Onset Date Comments MyCode Consent 03/14/2024 Encounter Details Date Type Department Care Team (Late st Contact Info) Description 03/14/2024 Orders Only Outcomes Research Department [address], [place] [id number] Ruth Herrera CHRA MyCode Research Other*[id number]* Allergies No known active allergiesdocumented as of this encounter (statuses as of 03/14/2024) Medications CENTRUM SILVER PO TABS Take by mouth. Activ e VITAMIN D3 1000 UNIT PO TABS Take by mouth. Ac tive CALCIUM 600 MG PO TABS 1 tab daily Active MAGNESIUM 300 MG PO CAPS 400 mg daily Active ASPIRIN 81 MG PO TABS Take by mouth . Pt reports she is only taking 1 tablet. Active Meloxicam 15 MG Tablet Pt reports she only takes 7.5 mg when she takes it. 10/02/19 16 Active ZyrTEC Allergy 10 MG Oral Capsule (Cetirizine HCl) Take 1 Capsule by mouth in the morning. Active Acetaminophen ER 650 MG Oral Tablet Extended Release Take 1 Tablet by mouth every 8 hours as needed. Active Vitamin C 100 MG Oral Tablet Take 1 Tablet by mouth in the morning. Active Zolpidem Tartrate 10 MG Oral Tablet (Ambien) TAKE 1 TABLET BY MOUTH ONCE DAILY AT BEDTIME NEEDED FOR INSOMNIA 08/22/19 22 Active Turmeric 1053 MG Oral Tablet 400 mg . 09/20/19 22 Active Biotin 1000 MCG Oral Tablet 1 Tablet. 09/20/19 22 Active traMADol HCl 50 MG Oral Tablet (Ultram) Take 1 Tablet by mouth every 6 hours as needed. Active Alendronate Sodium 70 MG Oral Tablet (Fosamax) TAKE 1 TABLET BY MOUTH WEEKLY 12 Tablet 3 03/06/20 23 Active Fluticasone Propionate 50 MCG/ACT Nasal Suspension (Flonase) Administer 2 Sprays into each nostril in the morning. 48 mL 1 04/16/20 23 Active Ferrous Sulfate 325 (65 Fe) MG Oral Tablet (Feosol) Take 1 Tablet by mouth daily with breakfast. 90 Tablet 1 04/16/20 23 Active Additional Information Patient not taking.Reported on 08/31/2023 traMADol HCl 50 MG Oral Tablet (Ultram)Indicati ons:Chronic bilateral low back pain without sciatica Take 1 Tablet by mouth every 6 hours as needed for Pain, Moderate or Pain, Severe. 30 Tablet 1 05/27/19 24 Active Rosuvastatin Calcium 5 MG Oral Tablet (Crestor) TAKE 1 TABLET BY MOUTH IN THE MORNING 90 Tablet 3 11/04/19 24 Active Cyclobenzaprine HCl 5 MG Oral Tablet (Flexeril) Take 1 Tablet by mouth 3 times a day as needed for Muscle spasms. 30 Tablet 11/13/19 24 Active Gabapentin 300 MG Oral Capsule (Neurontin) 2 capsules in the am and then 1 capsule at bedtime 90 Capsule 5 12/02/19 24 Active Esomeprazole Magnesium 40 MG Oral Capsule Delayed ReleaseIndicatio ns:Gastroesophag eal reflux disease without esophagitis TAKE 1 CAPSULE BY MOUTH IN THE MORNING 90 Capsule 2 01/05/20 24 Active Losartan Potassium 100 MG Oral Tablet (Cozaar)Indicati ons:Age-related osteoporosis without current pathological fracture TAKE 1 TABLET BY MOUTH IN THE MORNING 90 Tablet 2 01/05/20 24 Active FISH OIL 1000 MG PO CAPS 1 tab daily 024 Discontin ued(Medic ation List Clean Up) NIACIN 500 MG PO CPCR Take by mouth . 024 Discontin ued(Medic ation List Clean Up) GLUCOSAMINE 500 MG PO CAPS Take by mouth . 024 Discontin ued(Medic ation List Clean Up) Cyanocobalamin 1000 MCG Oral Tablet (Cyanocobalamin) DAILY IN THE MORNING 09/20/19 024 Discontin ued(Medic ation List Clean Up) documented as of this encounter (statuses as of 03/14/2024) Active Problems Problem Noted Date Diagnosed Date Chronic kidney disease, stage 3a 11/02/2023 Overview: Per CKD protocol Chronic bilateral low back pain without sciatica 08/29/2022 Status post bilateral knee replacements 08/30/19 23 Hyperlipidemia 08/29/2022 Osteopenia 08/29/2022 Gastroesophageal reflux disease without esophagi tis 08/29/2022 Anemia 08/29/2022 HTN, goal below 140/90 08/29/2022 Seasonal allergic rhinitis 08/29/2022 History of atypical nevus 07/11/2013 documented as of this encounter (statuses as of 03/14/2024) Resolved Problems Problem Noted Date Diagnosed Date Resolved Date S/P lumbar fusion 08/29/2022 08/29/2022 documented as of this encounter (statuses as of 03/14/2024) Immunizations Name Administration Dates Next Due COVID-19 mRNA, LNP-s, No Pre serve, 2-Dose Series (Moderna) 03/15/2021,07/12/2020,06/02/2020 COVID-19, MRNA-LNP, PF, 30 M CG/0.3 mL, 12 YRS AND ABOVE, IM ([facility]) 02/07/2023 COVID-19, mRNA, LNP-s, PF, B ooster, 100mcg/0.5mg (Moderna) 07/26/2021 Covid-19, Mrna, Lnp-s, Pf, B ivalent, 30 Mcg, IM, 12 yrs and above (Pfizer) 02/03/2022 Pneumococcal Conjugate Vacc, 13 Valent (Prevnar) 01/31/2016 Pneumococcal Polysaccharide PPV23 (Pneumovax) 03/29/2012 RSV Vac., Bivalent, Perfusio n F, Pf,0.5 Ml (Abrysvo) 01/16/2023 Season Influenza, Quad, PF, Adjuvanted, 65+ Yrs, IM (FLUAD) 01/16/2023 Seasonal Influenza, PF, 6 M & above, IM , (FluLaval or Fluzone) 02/11/2021 Seasonal Influenza, Quadriva lent Hd (Fluzone Hd) 03/05/2022 Zoster Vaccine Recombinant (Shingrix) 11/28/2019 ,06/23/2019 documented as of this encounter Social History Tobacco Use Types Packs/Day Years Used Date Smoking Tobacco: Former Cigarettes Q uit: 2000 Smokeless Tobacco: Never Comments:Used to smoke 4 cig arettes/day Alcohol Use Standard Drinks/Week Comments Yes 0 (1 standard drink = 0.6 oz pur e alcohol) Social PHQ-2 Answer Date Recorded PHQ Adult Total Score 0 06/30/2023 Hunger Vital Sign Answer Date Recorded Within the past 12 months, y ou worried that your food would run out before you got the money to buy more. Never true 06/30/19 24 Within the past 12 months, t he food you bought just didn't last and you didn't have money to get more. Never true 06/30/2023 Childcare Answer Date Recorded Do you feel overwhelmed with taking care of a child, family member or friend? No 06/30/2023 Does your family need help f inding childcare? (Household - for ages 0-17 years) Not on file 06/30/2023 Clothing Answer Date Recorded Have you been unable to get clothing when it was really needed? No 06/30/2023 Is your family able to get c lothes or diapers when needed? (Household - for ages 0-17 years) Not on file 06/30/2023 Personal Safety Answer Date Recorded Do you feel unsafe or have concerns for your saf ety? No 06/30/2023 Do you have concerns for you r family's safety? (Household - for ages 0-17 years) Not on file 06/30/2023 Utilities Answer Date Recorded Do you have trouble paying y our heating, water, or electric bill? No 06/30/2023 Is your family able to pay t he heat, water, or electric bill? (Household - for ages 0-17 years) Not on file 06/30/2023 Does your family have access to good internet? (Household - for ages 0-17 years) Not on file 06/30/2023 Employment Status Answer Date Recorded Are you unemployed or without regular income? No 06/30/2023 Does the household have a re gular source of income? (Household - for ages 0-17 years) Not on file 06/30/2023 Social Connections Answer Date Recorded How often do you feel lonely or isolated from th ose around you? Never 06/30/2023 Financial Resource Strain Answer Date R ecorded Do you have any trouble payi ng for your medications, or do you think you might in the future? No 06/30/2023 Does your family have troubl e paying for medicine? (Household - for ages 0-17 years) Not on file 06/30/2023 Transportation Needs Answer Date Record ed READ ONLY Do you have troubl e getting a ride to medical visits or work? Never True 06/30/2023 Does your family have a hard time getting a ride to doctors visits? (Household - for ages 0-17 years) Not on file 06/30/2023 Has lack of transportation k ept you from medical appointments, meetings, work, or from getting things needed for daily living? Check all that apply. (Adult - for ages 18 years and over) Not on file 06/30/2023 Do you (or your family) have trouble finding or paying for a ride (transportation)? (Household - for ages 0-17 years) Not on file 06/30/2023 Housing Stability Answer Date Recorded Do you currently live in a s helter or have no steady place to sleep at night? No 06/30/2023 READ ONLY Do you think you a re at risk of becoming homeless? No 06/30/2023 Does your family worry about paying for your home or becoming homeless? (Household - for ages 0-17 years) Not on file 0 06/30/2023 Are you homeless or worried that you might be in the future? (Adult - for ages 18 years and over) Not on file Are you (or your family) caterina eless or worried that you might be in the future? (Household - for ages 0-17 years) Not on file Food Insecurity Answer Date Recorded Do you need food for this week? No 06/30/2023 Are you able to get enough f ood for your family? (Household - for ages 0-17 years) Not on file 06/30/2023 Does your family need food t his week? (Household - for ages 0-17 years) Not on file 06/30/2023 Do you always have enough fo od for your family? (Household - for ages 0-17 years) Not on file 06/30/2023 Comments No Sex and Gender Information Value Date Recorded Sex Assigned at Female 02/12/2022 2:24 PM EDT Legal Sex Female 6:53 AM EST Gender Identity Female 02/12/2022 2:24 PM EDT Sexual Orientation Straight 02/12/2022 2: 24 PM EDT documented as of this encounter Progress Notes * Ruth Herrera CHRA - 03/14/2024 10:31 AM EST MyCode Consent Documentation Lisseth Victor Manuel provided consent/authorization to participate in the MyCode Project. documented in this encounter Plan of Treatment Upcoming Encounters Date Type Department Care Team (Late st Contact Info) Description 07/06/2024 11:00 AM EDT Nurse Only Ancillary Department, [facility] [address] [place] [address] [place], Nurse Annual Wellness [address] [place] [address] 11/10/2024 11:15 AM EDT Office Visit Dermatology [facility] [address] [facility] [place] [address] Elan Collier MD [address] [place] [address] Scheduled Orders Name Type Priority Associated Diagnoses Orde r Schedule MYCODE INITIAL ADULT Lab Routine MyCode Research Other*[id number] Expected: 03/14/2024 (Approximate), Expires: 04/03/2025 Health Maintenance Due Date Last Done Comments CKD PHOS USE SMARTSET 41620 1963 Influenza Vaccine (FLU shot) (#1) 2023 01/16/2023, 03/05/2022, 02/11/2021, Additional history exists COVID-19 Vaccine ( season) 2024 02/07/2023, 02/03/2022, 07/26/2021, Additional history exists Postponed from 12/27/2023 (Patient Declined After Education) DTap/Tdap Vaccines (1 - Tdap) 04/02/2024 Postponed from 1964 (Insurance/Financial) GFR 04/12/2024 10/12/2023, 05/0 04/2022, 03/05/2022, Additional history exists Adult Wellness Visit 06/29/2024 06/30/2023, 06/26/19 Depression Screening 06/29/2024 06/30/2023 Albumin/Creatinine Ratio 10/11/2024 10/12/2023 CKD HGB USE SMARTSET 90768 10/11/202410/11, 12/20/2022, 08/29/2022, Additional history exists DXA Scan 01/21/2029 01/21/2022, 12/27, 07/07/2019, Additional history exists Colonoscopy Discontinued 10/08/2012 Pneumococcal Vaccine: 65+ Years Completed 01/31/2016, 03/29/2012 Zoster Vaccines Completed 11/28/2019, 06/23/2019 Cologuard Discontinued 09/17/2023, 08/25, 09/08/2023 Colorectal Cancer Screening Discontinued Fecal Occult Blood Test Discontinued HPV (Gardasil) Vaccine Aged Out No lo nger eligible based on patient's age to complete this topic Hepatitis B Vaccine Aged Out No longe r eligible based on patient's age to complete this topic MENINGOCOCCAL (MENACTRA/MENVEO) Aged Out No longer eligible based on patient's age to complete this topic Sigmoidoscopy Discontinued documented as of this encounter Medical Devices Not on filedocumented as of this encounter Visit Diagnoses Diagnosis MyCode Research Other*[id number]- Primary documented in this encounter Advance Directives Documents on File Type Date Recorded Patient Home Service Advisor Expl anation Advance Directives and Living Will 10/15/2021 Natasha Torres ADVANCE DIRECTIVE / LIVING WILL Care Teams Certified Pharmacy Technician Relationship Specialty Start Date End Date Cristy Corona DO [address] [place] [address] PCP - General Family Medicine 08/26/21 documented as of this encounter
--- OUTSIDE RECORDS SUMMARY | 2024-04-25 05:19 | External Medical Summary | Summary of Care ---
Author Name Unknown Organization [facility] Address [address] [place] [address] Phone [phone] Care Team Providers Care Title Coordinator Name Role Phone Cristy Corona DO Primary Care Provider [phone] Reason for Visit * Reason Comments Follow Up Return in 6 months Encounter Details Date Type Department Care Team (Late st Contact Info) Description 03/14/2024 10:30 AM EST Office Visit [address] [address] Cristy Corona DO [facility] [place] [address] Other osteoporosis without current pathological fracture*; Gastroesophageal reflux disease without esophagitis; HTN, goal below 140/90 Allergies No known active allergiesdocumented as of this encounter (statuses as of 03/14/2024) Medications CENTRUM SILVER PO TABS Take by mouth. Activ e VITAMIN D3 1000 UNIT PO TABS Take by mouth. Ac tive CALCIUM 600 MG PO TABS 1 tab daily Active MAGNESIUM 300 MG PO CAPS 400 mg daily Active Meloxicam 15 MG Tablet Pt reports she only takes 7.5 mg when she takes it. 6 Active ZyrTEC Allergy 10 MG Oral Capsule [...] ONCE DAILY AT BEDTIME NEEDED FOR INSOMNIA 2 Active Turmeric 1053 MG Oral Tablet 400 mg . 2 Active Biotin 1000 MCG Oral Tablet 1 Tablet. 2 Active traMADol HCl 50 MG Oral Tablet (Ultram) Take 1 Tablet by mouth every 6 hours as needed. Active Alendronate Sodium 70 MG Oral Tablet (Fosamax) TAKE 1 TABLET BY MOUTH WEEKLY 12 Tablet 3 3 Active Fluticasone Propionate 50 MCG/ACT Nasal Suspension (Flonase) Administer 2 Sprays into each nostril in the morning. 48 mL 1 3 Active Ferrous Sulfate 325 (65 Fe) MG Oral Tablet (Feosol) Take 1 Tablet by mouth daily with breakfast. 90 Tablet 1 3 Active traMADol HCl 50 MG Oral Tablet (Ultram)Indicati ons:Chronic bilateral low back pain without sciatica Take 1 Tablet by mouth every 6 hours as needed for Pain, Moderate or Pain, Severe. 30 Tablet 1 4 Active Rosuvastatin Calcium 5 MG Oral Tablet (Crestor) TAKE 1 TABLET BY MOUTH IN THE MORNING 90 Tablet 3 4 Active Cyclobenzaprine HCl 5 MG Oral Tablet (Flexeril) Take 1 Tablet by mouth 3 times a day as needed for Muscle spasms. 30 Tablet 4 Active Gabapentin 300 MG Oral Capsule (Neurontin) 2 capsules in the am and then 1 capsule at bedtime 90 Capsule 5 4 Active Esomeprazole Magnesium 40 MG Oral Capsule Delayed ReleaseIndicatio ns:Gastroesophag eal reflux disease without esophagitis TAKE 1 CAPSULE BY MOUTH IN THE MORNING 90 Capsule 2 4 Active Losartan Potassium 100 MG Oral Tablet (Cozaar)Indicati ons:Age-related osteoporosis without current pathological fracture TAKE 1 TABLET BY MOUTH IN THE MORNING 90 Tablet 2 4 Active FISH OIL 1000 MG PO CAPS 1 tab daily 024 Discontin ued(Medic ation List Clean Up) NIACIN 500 MG PO CPCR Take by mouth . 024 Discontin ued(Medic ation List Clean Up) ASPIRIN 81 MG PO TABS Take by mouth . Pt reports she is only taking 1 tablet. 024 Discontin ued(Disch arged) GLUCOSAMINE 500 MG PO CAPS Take by mouth . 024 Discontin ued(Medic ation List Clean Up) Cyanocobalamin 1000 MCG Oral Tablet (Cyanocobalamin) DAILY IN THE MORNING 2 024 Discontin ued(Medic ation List Clean Up) [...] CG/0.3 mL, 12 YRS AND ABOVE, IM ([facility]) 02/07/2023 COVID-19, mRNA, LNP-s, PF, B ooster, [...] Date Smoking Tobacco: Former Cigarettes Q uit: 1999 Smokeless Tobacco: Never Tobacco Cessation:Counseling Given: Not Answered Comments:Used to smoke 4 cigarettes/day Alcohol Use Standard Drinks/Week Comments Yes 0 [...] PM EDT documented as of this encounter Last Filed Vital Signs Vital Sign Reading Time Taken Comments Blood Pressure 132/74 03/14/2024 10:30 AM EST Pulse 82 03/14/2024 10:30 AM EST Temperature 36.6 C (97.9 F) 03/14/2024 10:[address] Respiratory Rate 18 03/14/2024 10:30 AM EST Oxygen Saturation 97% 03/14/2024 10:30 AM EST Inhaled Oxygen Concentration - - Weight 66.3 kg (146 lb 3.2 oz) 03/14/2024 10:30 AM EST Height 152.4 cm (5') 03/14/2024 10:30 AM EST Body Mass Index 28.55 03/14/2024 10:30 AM EST documented in this encounter Progress Notes * Cristy Corona, - 03/14/2024 11:04 AM EST Subjective: Lisseth Rush is a 78 year old female. Chief Complaint Patient presents with Follow Up Return in 6 months HPI: 77 year old female presents today for a follow-up. Has hx of htn, GERD, osteopenia, and dyslipidemia. She is scheduled to get her Left hip replaced with Dr Garrett on April 25 , she states she had labs and still anemic. I did not get any labs but she has results on her phone and her hemoglobin was11.5, currently she is taking iron 3 times a week. She has issues with constipation if she takes the iron daily. Although she reports that she takes fiber at night , the gummies, I suggested to hold those and try taking iron daily. She needs a dexa, this was ordered , she is on fosamax. She feels well,no chest pain and or shortness of breath. PHM: Patient Active Problem List Diagnosis History of atypical nevus Chronic bilateral low back pain without sciatica Status post bilateral knee replacements Hyperlipidemia Osteopenia Gastroesophageal reflux disease without esophagitis Anemia HTN, goal below 140/90 Seasonal allergic rhinitis Chronic kidney disease, stage 3a (HCC) Current Outpatient Medications Medication Sig Dispense Refill CENTRUM SILVER PO TABS Take by mouth. VITAMIN D3 1000 UNIT PO TABS Take by mouth. CALCIUM 600 MG PO TABS 1 tab daily MAGNESIUM 300 MG PO CAPS 400 mg daily Meloxicam 15 MG Tablet Pt reports she only takes 7.5 mg when she takes it. ZyrTEC Allergy 10 MG Oral Capsule (Cetirizine HCl) Take 1 Capsule by mouth in the morning. Acetaminophen ER 650 MG Oral Tablet Extended Release Take 1 Tablet by mouth every 8 hours as needed. Vitamin C 100 MG Oral Tablet Take 1 Tablet by mouth in the morning. Zolpidem Tartrate 10 MG Oral Tablet (Ambien) TAKE 1 TABLET BY MOUTH ONCE DAILY AT BEDTIME NEEDEDFOR INSOMNIA Turmeric 1053 MG Oral Tablet 400 mg . Biotin 1000 MCG Oral Tablet 1 Tablet. traMADol HCl 50 MG Oral Tablet (Ultram) Take 1 Tablet by mouth every 6 hours as needed. Alendronate Sodium 70 MG Oral Tablet (Fosamax) TAKE 1 TABLET BY MOUTH WEEKLY 12 Tablet 3 Fluticasone Propionate 50 MCG/ACT Nasal Suspension (Flonase) Administer 2 Sprays into each nostril in the morning. 48 mL 1 Ferrous Sulfate 325 (65 Fe) MG Oral Tablet (Feosol) Take 1 Tablet by mouth daily with breakfast. 90Tablet 1 traMADol HCl 50 MG Oral Tablet (Ultram) Take 1 Tablet by mouth every 6 hours as needed for Pain, Moderate or Pain, Severe. 30 Tablet 1 Rosuvastatin Calcium 5 MG Oral Tablet (Crestor) TAKE 1 TABLET BY MOUTH IN THE MORNING 90 Tablet 3 Cyclobenzaprine HCl 5 MG Oral Tablet (Flexeril) Take 1 Tablet by mouth 3 times a day as needed for Muscle spasms. 30 Tablet 0 Gabapentin 300 MG Oral Capsule (Neurontin) 2 capsules in the am and then 1 capsule at bedtime 90 Capsule 5 Esomeprazole Magnesium 40 MG Oral Capsule Delayed Release TAKE 1 CAPSULE BY MOUTH IN THE MORNING 90Capsule 2 Losartan Potassium 100 MG Oral Tablet (Cozaar) TAKE 1 TABLET BY MOUTH IN THE MORNING 90 Tablet 2 ASPIRIN 81 MG PO TABS Take by mouth . Pt reports she is only taking 1 tablet. (Patient not taking: Reported on 03/14/2024) No current facility-administered medications for this visit. Review of patient's allergies indicates: No Known Allergies Objective: BP 132/74 | Pulse 82 | Temp 36.6 C (97.9 F) (Tympanic) | Resp 18 | Ht 1.524 m (5') | Wt 66.3 kg(146 lb 3.2 oz) | SpO2 97% | BMI 28.55 kg/m | BSA 1.68 m Physical Exam: General: alert, healthy, and no distress Heart: regular rate & rhythm, no murmur, and no gallops Lungs: chest symmetric with normal AP diameter, no chest deformities noted, no chest wall tenderness, lungs clear to auscultation Abdomen: abdomen soft, non-tender, normal bowel sounds, and no masses or organomegaly Extremities: no edema ASSESSMENT/PLAN: Other osteoporosis without current pathological fracture (Primary) - DEXA SCAN/BONE MINERAL AXIAL Gastroesophageal reflux disease without esophagitis HTN, goal below 140/90 Follow-up: Return in about 6 months (around 09/11/2024). | Check-out note: Needs dexa please . Cristy Corona DO documented in this encounter Nursing Notes * Madeleine Nelson LPN - 03/14/2024 10:30 AM EST The patient has been properly identified by confirmation of name and date of . Chief Complaint Patient presents with Follow Up Return in 6 months Patient is scheduled for hip replacement April 25 at [facility] Recent labs done at [facility] - would like these reviewed documented in this encounter Plan of Treatment Upcoming Encounters Date Type Department Care Team (Late st Contact Info) Description 07/06/2024 11:00 AM EDT Nurse Only Ancillary Department, [facility] [address] [facility] [address] [place] [facility] [address] [facility] [address] 08/30/2024 2:30 PM EDT Imaging Radiology, [facility] [address] [facility] [address] 09/26/2024 11:50 AM EDT Office Visit Family Practice, [facility] [address] [facility] [address] Cristy Corona, [address] [facility] [place] [address] 11/10/2024 11:15 AM EDT Office Visit Dermatology [facility] [address] [facility] [place] [address] Elan Collier MD [address] [facility] [place] [address] Scheduled Orders Name Type Priority Associated Diagnoses Orde r Schedule DEXA SCAN/BONE MINERAL AXIAL Medical Imaging Routine Other osteoporosis without current pathological fracture Ordered: 03/14/2024 Health Maintenance Due Date Last Done Comments CKD PHOS USE SMARTSET 30779 1963 Influenza Vaccine (FLU shot) (#1) 2023 [...] Ratio 10/11/2024 10/12/2023 CKD HGB USE SMARTSET 80344 10/11/202410/11, 12/20/2022, 08/29/2022, Additional history exists DXA [...] as of this encounter Visit Diagnoses Diagnosis Other osteoporosis without current pathological fracture- Primary Gastroesophageal reflux disease without esophagitis Esophageal reflux HTN, goal below 140/90 Unspecified essential hypertension documented in this encounter Advance Directives Documents on File Type Date Recorded Patient Director Community Center Expl anation Advance Directives and Living Will 10/15/2021 Natasha Torres ADVANCE DIRECTIVE / LIVING WILL Care Teams Title Coordinator Relationship Specialty Start Date End Date Cristy Corona DO [address] [facility] [place] [address] PCP - General Family Medicine 08/26/21 documented as of this encounter"
--- OUTSIDE RECORDS SUMMARY | 2024-04-25 05:19 | External Medical Summary | Summary of Care ---
Author Name Unknown Organization [facility] [address] [facility] [address] Phone [phone] Care Team Providers Care Graphic Artist Name Role Phone Tameka Corona DO Primary Care Provider [phone] Reason for Visit * Reason Comments eRx-Medication Refill Encounter Details Date Type Department Care Team (Late st Contact Info) Description 03/26/2024 [facility]ill [facility] [address] [facility] [place] [phone] Tameka Corona DO [address] [place] [address] Allergies No known active allergiesdocumented as of this encounter (statuses as of 03/28/2024) Medications CENTRUM SILVER PO TABS Take by mouth. Active VITAMIN D3 1000 UNIT PO TABS Take by mouth. Active CALCIUM 600 MG PO TABS 1 tab [...] mouth every 6 hours as needed. Active Fluticasone Propionate 50 MCG/ACT Nasal Suspension (Flonase) Administer 2 Sprays into each nostril in the morning. 48 mL 1 04/16/20 23 Active Ferrous Sulfate 325 (65 Fe) MG Oral Tablet (Feosol) Take 1 Tablet by mouth daily with breakfast. 90 Tablet 1 04/16/20 23 Active traMADol HCl 50 MG Oral Tablet [...] MORNING 90 Tablet 2 01/05/20 24 Active Alendronate Sodium 70 MG Oral Tablet (Fosamax) TAKE 1 TABLET BY MOUTH WEEKLY 12 Tablet 2 03/28/20 24 Active Alendronate Sodium 70 MG Oral Tablet (Fosamax) TAKE 1 TABLET BY MOUTH WEEKLY 12 Tablet 3 03/06/20 23 024 Discontinued documented as of this encounter (statuses as of 03/28/2024) Active Problems Problem Noted Date Diagnosed Date [...] as of this encounter (statuses as of 03/28/2024) Resolved Problems Problem Noted Date Diagnosed Date Resolved Date S/P lumbar fusion 08/29/2022 08/29/2022 documented as of this encounter (statuses as of 03/28/2024) Immunizations Name Administration Dates Next Due COVID-19 mRNA, LNP-s, No Pre serve, 2-Dose Series (Moderna) 03/15/2021,07/12/2020,06/02/2020 COVID-19, MRNA-LNP, PF, 30 M CG/0.3 mL, 12 YRS AND ABOVE, IM ([facility]) 02/07/2023 COVID-19, mRNA, LNP-s, PF, B ooster, [...] Cigarettes Q uit: 1999 Smokeless Tobacco: Never Comments:Used to smoke 4 [...] PM EDT documented as of this encounter Miscellaneous Notes * Telephone Encounter - Fidelina Alvarez [facility] - 03/28/2024 5:39 AM ESTSigned Prescriptions: Disp Refills Alendronate Sodium 70 MG Oral Tablet (Fosa*12 Tab*2 Sig: TAKE 1 TABLET BY MOUTH WEEKLYAuthorizing Provider: TAMEKA CORONA User: FIDELINA ALVAREZ----- documented in this encounter Plan of Treatment Upcoming Encounters Date Type Department Care Team (Late st Contact Info) Description 07/06/2024 11:00 AM EDT Nurse Only Ancillary Department, Psychiatric [address] [facility] [place] [phone] Serg Nurse [facility] [address] [facility] [address] 08/30/2024 2:30 PM EDT Imaging Radiology, [address] [place] [address] 09/26/2024 11:50 AM EDT Office Visit Family [facility] [address] [facility] [phone] Tameka Corona DO [address] [place] [address] 11/10/2024 11:15 AM EDT Office [facility] [address] [place] [address] Elan Collier MD [address] [place] [phone] Health Maintenance Due Date Last Done Comments CKD PHOS USE SMARTSET 92584 1963 COVID-19 Vaccine (2023- season) 2023 02/07/2023, 02/03/2022, 07/26/2021, Additional history exists Influenza Vaccine (FLU shot) (#1) 2023 01/16/2023, 03/05/2022, 02/11/2021, Additional history exists DTap/Tdap Vaccines (1 - Tdap) 04/02/2024 Postponed from 1965 (Insurance/Financial) GFR 04/12/2024 10/12/2023, 0504/2022, 03/05/2022, Additional history exists Adult Wellness Visit 06/29/2024 06/30/2023, 06/26/19 Depression Screening 06/29/2024 06/30/2023 Albumin/Creatinine Ratio 10/11/2024 10/12/2023 CKD HGB USE SMARTSET 53586 10/11/202410/11, 12/20/2022, 08/29/2022, Additional history exists DXA [...] Not on filedocumented as of this encounter Advance Directives Documents on File Type Date Recorded Patient Bill Cutter Expl anation Advance Directives and Living Will 10/15/2021 Natasha Torres ADVANCE DIRECTIVE / LIVING WILL Care Teams Graphic Artist Relationship Specialty Start Date End Date Tameka Corona DO [address] [place] [address] PCP - General Family Medicine 08/26/21 documented as of this encounter
[2024-04-25] MEDS: FAMOTIDINE 20 MG TAB PO SCH (05:44)
[2024-04-25] MEDS: dexAMETHasone**PF** 10 MG/ML VIAL IV SCH (05:44)
[2024-04-25] MEDS: GABAPENTIN 300 MG CAP PO SCH ×2 (05:44→11:22)
[2024-04-25] MEDS: LR 60ML/HR IV SCH (05:45)
[2024-04-25] MEDS: ACETAMINOPHEN 500 MG TAB PO SCH ×2 (05:46→13:52)
[2024-04-25] MEDS ORDERED: BUPIVACAINE 0.5 % 5 MG/1 ML PF 10ML VIAL ONE (06:20)
[2024-04-25] MEDS: LR 500ML BOLUS, THEN 15ML/HR IV SCH (06:20)
[2024-04-25] MEDS ORDERED: ePHEDrine sulfate 50 MG/ML AMP IV PRN (06:39)
[2024-04-25] MEDS ORDERED: ATROPINE SULFATE 0.1 MG/ML 10ML SYR IV PRN (06:39)
[2024-04-25] MEDS ORDERED: fentaNYL citrate PF 100 MCG/2 ML VIAL IV PRN (06:39)
[2024-04-25] MEDS ORDERED: ONDANSETRON INJ 2 MG/ML 2 ML VIAL IV PRN ×2 (06:39→10:25)
[2024-04-25] MEDS ORDERED: MIDAZOLAM HCL 1 MG/ML 2ML VIAL ONE (06:42)
[2024-04-25] MEDS ORDERED: fentaNYL citrate PF 100 MCG/2 ML VIAL ONE (06:43)
[2024-04-25] MEDS ORDERED: PHENYLEPHRINE 100MCG/ML 5ML SYR ONE (06:45)
[2024-04-25] MEDS: TRANEXAMIC ACID 1,000 MG **IV Pre-op IV SCH (06:46)
--- NOTE | 2024-04-25 06:49 | History & Physical Bridge Note ---
Date of Service April 25, 2024 History & Physical Bridge Note I have examined the patient, reviewed the History & Physical and in the interval since the performance of the History & Physical I have noted the following changes of clinical significance: no changes noted
[2024-04-25] MEDS: ceFAZolin 2000MG 2,000 MG/15 ML SYR IV SCH (06:59)
[2024-04-25] MEDS ORDERED: LIDOCAINE 2% 2 ML VIAL/AMP(20MG/ML) INFIL ONE (07:03)
[2024-04-25] MEDS ORDERED: PROPOFOL IV EMULSION 10 MG/ML 20 ML VIAL IV ONE (07:03)
[2024-04-25] MEDS ORDERED: KETAMINE HCL 10MG/ML SYR ONE (07:16)
[2024-04-25] MEDS ORDERED: ONDANSETRON INJ 2 MG/ML 2 ML VIAL ONE (07:17)
[2024-04-25] MEDS ORDERED: PHENYLEPHRINE HCL 10 MG/ML VIAL ONE (07:52)
[2024-04-25] MEDS: ORTHO JOINT ANESTHETIC ONE (07:55)
[2024-04-25] MEDS: ROPIV 0.5% 246mg, Ketorolac 30mg, EPINEPHrine 0.5mg in NSS INFIL SCH (07:55)
[2024-04-25] MEDS: TRANEXAMIC ACID 1,000 MG **IV Intra-op IV SCH (08:05)
--- NOTE | 2024-04-25 08:11 | Operative Report ---
PG Post Operative Report Pre & Post Diagnosis Operation Date: 04/25/24 07:00 Pre-Op Diagnosis: Left Hip Arthritis Post-Op Diagnosis: Left Hip Arthritis I identified the patient and participated in the time-out.: Yes Procedure Operation Date: 04/25/24 07:00 Actual Procedures p Left Anterior Total Hip Arthroplasty(Left) - Víctor Garrett DO Surgeon Víctor Garrett DO Home Health Manager Jigar Trevino PA-C Estimated Blood Loss 200 Findings Consistent with Post-Op Diagnosis Specimens Left femoral head Description of Procedure Implants used I used a ZimmerBiomet total hip arthroplasty system with a size 2 standard offset Avenir Complete stem, a 50 mm G7 cup with a 25mm screw, an E1 polyethylene liner, a 36 mm ceramic head with a +3.5 neck. Lisseth arrived at the hospital for the above procedure. She was seen in the preoperative holding area and the operative extremity was identified and signed. She was given a spinal anesthetic, a preoperative antibiotic, and TXA. She was then taken back to the operating room and laid on the table in the supine position. She was given basic sedation. The operative leg was secured to a Puristst leg positioner. The hip was then prepped and draped in sterile fashion. A timeout was done and the patient and the operative extremity was properly identified. An anterior approach was used. Dissection was taken down through the fascia and the tensor muscle belly was retracted laterally and the rectus was retracted medially. The circumflex vessels were identified and ligated. The capsule was then incised and tagged for later repair. The femoral neck was then cut and the femoral head was removed. The acetabulum was exposed. Time was spent doing a complete circumferential labral release. Sequential reaming of the acetabulum up to a size 49 reamer was done. Final reamings were done under fluoroscopy to ensure appropriate version. A Biomet 50 mm G7 cup was then impacted into place. A single 25 mm screw was placed. The E1 polyethylene liner was then snapped into place. Surrounding soft tissues were then injected with 100 cc of an orthopedic pain control cocktail. The proximal femur was then exposed. Sequential broaching up to a size 2 broach was done. Off that broach a size 36 head with a +3.5 neck was trialed. The hip was reduced and fluoroscopic images showed anatomic alignment of the implants in acceptable length. The broach was removed. The final size 2 standard offset Avenir Complete stem was then impacted into place. A ceramic 36 mm head with a +3.5 neck was then impacted onto the stem and the hip was reduced. Final fluoroscopic images showed anatomic alignment of the hip. The capsule was then closed with #1 Vicryl suture. A dilute betadyne lavage was then done for 3 minutes. The joint was then irrigated with normal saline solution. The fascia was closed with #1 PDS suture. Skin was closed with 2-0 Vicryl, kassidy, and a Silverlon dressing. She was then transferred to a hospital bed and taken to the post anesthesia care unit in stable condition. She tolerated the procedure well. Jigar Trevino PA-C, was present for the entire procedure. He was critical for patient positioning, prepping, draping, retraction exposure, wound closure and application of sterile dressing. I attest to the content of the Intraoperative Record and any orders documented therein. Any exceptions are noted below.
--- NOTE | 2024-04-25 08:57 | Anesthesiology Progress Note ---
Date of Service April 25, 2024 Anesthesia Post Procedure Vital Signs Vital Signs: Temp Pulse Resp BP Pulse Ox O2 Del Method 04/25/24 05:34 97.5 F L 88 20 144/61 H 99 Room Air Pain Intensity Left Hip: Pain Intensity: 4 Transfer of Care Handoff Completed per policy Notes Mental Status: alert / awake / arousable and participated in evaluation Patient Amnestic to Procedure: Yes Nausea / Vomiting: adequately controlled Pain: adequately controlled Airway Patency, RR, SpO2: stable & adequate BP & HR: stable & adequate Hydration State: stable & adequate Neuraxial Anesthesia: was administered and sensory block is resolving Anesthetic Complications: no major complications apparent and Pt Satisfied with anesthetic care
--- NOTE | 2024-04-25 09:03 | Fluoroscopy Report ---
FL hip LT 1V CLINICAL HISTORY: LT ANTERIOR JERRICA TECHNIQUE: 1 views were obtained with the C-arm in the OR with the above procedure. Total fluoroscopy time was 29 seconds. Radiation dose was 3.1 mGy. Comparison: Comparison is made to hip radiograph 02/23/2024 FINDINGS/IMPRESSION: Intraoperative images were obtained of total left hip arthroplasty. Please correlate with intraoperative fluoroscopy and operative report. ACT 112: Negative or not required by law. Electronically signed by: Blake Gary M.D. 04/25/2024 9:01 AM
--- NOTE | 2024-04-25 09:27 | XRay Report ---
XR hip 1V LT w pelvis CLINICAL HISTORY: IN PACU - Post Surgical TECHNIQUE: 1 view of the left hip and single frontal view of the pelvis were obtained. Comparison: Comparison is made to hip radiographs 02/23/2024 FINDINGS: Patient is status post total hip arthroplasty with expected postsurgical changes including soft tissu e swelling and subcutaneous emphysema. IMPRESSION: Expected postoperative appearance status post placement of total hip arthroplasty. ACT 112: Negative or not required by law. Electronically signed by: Blake Gary M.D. 04/25/2024 9:25 AM
[2024-04-25] MEDS ORDERED: NON-FORMULARY MEDICATION (Turmeric 400 mg Capsule) PO SCH (10:25)
[2024-04-25] MEDS ORDERED: METOCLOPRAMIDE HCL INJ 5 MG/ML 2 ML VIAL IV PRN (10:25)
[2024-04-25] MEDS ORDERED: bisacodyL 10 MG SUPP PR PRN (10:25)
[2024-04-25] MEDS ORDERED: oxyCODONE HCL IR 5 MG TAB (IMMEDIATE RELEASE) PO PRN (10:25)
[2024-04-25] MEDS ORDERED: MAGNESIUM HYDROXIDE SUSP 30 ML UDC PO PRN (10:25)
[2024-04-25] MEDS ORDERED: CYCLOBENZAPRINE HCL 5 MG TAB PO PRN (10:25)
[2024-04-25] MEDS ORDERED: NALOXONE HCL 0.4 MG/1 ML VIAL/CARP IV PRN (10:25)
[2024-04-25] MEDS ORDERED: NON-FORMULARY MEDICATION (Cinnamon Bark [Cinnamon] 500 mg Capsule) PO SCH (10:25)
[2024-04-25] MEDS ORDERED: FLUTICASONE PROPIONATE NA SPR 16 GM BTL PRN (10:25)
[2024-04-25] MEDS ORDERED: HYDROmorphone INJ 0.5 MG/0.5 ML SYR IV PRN (10:25)
[2024-04-25] MEDS ORDERED: INULIN PO SCH (10:25)
[2024-04-25] MEDS: MULTIVITAMIN TAB PO SCH (11:18)
[2024-04-25] MEDS: ASPIRIN 81 MG ECTAB PO SCH (11:18)
[2024-04-25] MEDS: DOCUSATE SODIUM 100 MG CAP PO SCH (11:19)
[2024-04-25] MEDS: PANTOprazole 40 MG TAB PO SCH (11:22)
[2024-04-25] MEDS: FERROUS SULFATE 325 MG TAB PO SCH (11:22)
[2024-04-25] MEDS: LOSARTAN POTASSIUM 50 MG TAB PO SCH (11:23)
[2024-04-25] MEDS: ROSUVASTATIN CALCIUM 5 MG TAB PO SCH (11:23)
[2024-04-25] MEDS: KETOROLAC TROMETHAMINE 15 MG/ML VIAL IV SCH (12:08)
[2024-04-25] MEDS: traMADol HCL 50 MG TABLET PO PRN (13:20)
[2024-04-25] MEDS: ceFAZolin 1000MG 1,000 MG/7.5 ML SYR IV SCH (15:57)
[2024-04-25] MEDS ORDERED: NON-FORMULARY MEDICATION (Biotin 1 mg Tablet) PO SCH (21:00)
[2024-04-25] MEDS: CALCIUM CARBONATE 1250MG TAB PO SCH (21:31)
[2024-04-25] MEDS: MAGNESIUM OXIDE 400 MG TAB PO SCH (21:31)
[2024-04-25] MEDS: GABAPENTIN 600 MG TAB PO SCH (21:32)
[2024-04-25] MEDS: CETIRIZINE HCL 10 MG TABLET PO SCH (21:32)
[2024-04-25] MEDS: SENNA 8.6 MG TAB PO SCH (22:10)
[2024-04-25] MEDS: ZOLPIDEM TARTRATE 5 MG TAB PO PRN (22:11)
--- NOTE | 2024-04-26 06:18 | Orthopedic Progress Note ---
Date of Service April 26, 2024 Assessment & Plan (1) Status post left hip replacement: Overall she is doing very well. She is not having much pain in the left hip. She will be seen by physical therapy today for ambulation and range of motion exercises. She is on aspirin for DVT prophylaxis. She can be discharged to [facility] today if the bed becomes available. Anil Montanez was seen and examined at bedside this morning. Overall she is doing very well. She is not having much pain in the left hip. She has been up and ambulating to the bathroom. She is no complaints.. Review of Systems All systems reviewed & are unremarkable except as noted in HPI & below. Physical Exam On physical exam the left hip, the dressing is clean and dry. Her leg is out full extension. She has active dorsiflexion plantarflexion of her left ankle.. Results & Data Results & Data Laboratory Results . Diagnostic Findings Postoperative x-rays of the left hip show the prosthesis to be in anatomic alignment without any evidence of fracture, dislocation, or loosening.. PG Care Time/CCT Total # of Minutes Spent Total Time Spent with Patient: Total time spent is greater than 50% in coordination of care (as documented) at patient's floor/unit and/or counseling patient: Coding Level of Care Code 40971 Post Operative Follow-Up Diagnoses Status post left hip replacement Z96.642
[2024-04-26 07:57] VITALS: BP 109/63; PULSE 82; RESP 18; TEMP 98.8; O2SAT 93
[2024-04-26] MEDS: dexAMETHasone 4 MG TAB PO SCH (08:56)
[2024-05-01] MEDS ORDERED: ALENDRONATE SODIUM 70 MG TAB PO SCH (09:00)
== END 2024-04-26 15:01 ==
LOC: ASU 05:14 → 3W 05:14